=== PATIENT | female | born 1990 | race Hispanic/Latino ===

== ENCOUNTER → 2018-10-04 | Outpatient (CLI) | payer OTHER ==
[2018-10-04 18:33] LABS: BASO % 0.2 % (0.0-1.0); EOS # 0.2 10^3/uL (0.0-0.50); EOS % 2.5 % (0.0-3.0); HEMATOCRIT 39.2 % (36.0-47.0); HEMOGLOBIN 12.9 g/dl (12.0-15.5); LYMPH # 1.5 10^3/uL (1.5-6.5); LYMPH % 15.9 % (24.0-44.0); MEAN CORPUSCULAR HEMOGLOBIN 29.5 pg (27.0-33.0); MEAN CORPUSCULAR HGB CONC 32.9 g/dl (32.0-36.5); MEAN CORPUSCULAR VOLUME 89.5 fl (80.0-96.0); MONO # 0.4 10^3/uL (0.0-0.8); MONO % 4.2 % (0.0-5.0); NEUTROPHILS % 76.8 % (36.0-66.0); PLATELET COUNT, AUTOMATED 295 10^3/uL (150-450); RED BLOOD COUNT 4.38 10^6/uL (4.00-5.40); WHITE BLOOD COUNT 9.1 10^3/uL (4.0-10.0)
[2018-10-04 20:36] LABS: CHLAMYDIA DNA AMPLIFICATION NEGATIVE (NEGATIVE); GC DNA AMPLIFICATION NEGATIVE (NEGATIVE)
[2018-10-05 11:18] LABS: HIV 1&2 SCREEN CENTAUR NEGATIVE (NEGATIVE); RUBELLA IgG QUALITATIVE IMMUNE (IMMUNE)
[2018-10-06 11:16] LABS: HEPATITIS C VIRUS ABY INDEX 0.1 INDEX (<0.8)
== END ==
LOC: M SMT 13:48
PROVIDERS: ATTEND Advanced Practice Midwife
DX: Z34.81 Encounter for supervision of other normal pregnancy, first trimester (principal); Z3A.00 Weeks of gestation of pregnancy not specified

== ENCOUNTER → 2018-10-15 | Outpatient (CLI) | payer OTHER | LOC: M SMT 09:36 | PROVIDERS: ATTEND Obstetrics & Gynecology | DX: Z13.79 Encounter for other screening for genetic and chromosomal anomalies (principal) ==

== ENCOUNTER → 2018-11-08 | Outpatient (CLI) | payer OTHER | LOC: M SMT 10:05 | PROVIDERS: ATTEND Obstetrics & Gynecology | DX: Z36.89 Encounter for other specified antenatal screening (principal) ==

== ENCOUNTER → 2018-11-29 | Outpatient (CLI) | payer OTHER ==
--- NOTE | 2018-11-29 19:35 | REP ---
Clinical: Anatomical evaluation. Comparison: None to the surface. This is more . Findings: Examination demonstrates a single live intrauterine in cephalic presentation. motion is identified by technologist. Placenta is noted the anterior and grade grade 1 without evidence for placenta previa or abruption. Amniotic fluid volume is normal. Cervix measures 5.1 cm in length and appears closed. No evidence for nuchal cord. Gestational age by LMP 19 weeks 3 days with PORSHA 04/22/2019 . Gestational age by current measurements 18 weeks 4 day with PORSHA 04/28/2019 . FHR equals 163 beats per minute. BPD 3.9 cm 17 weeks 6 days HC 15.9 cm 18 weeks 5 days AC 12.8 cm 18 weeks 3 days FL 2.8 cm 18 weeks 5 days HL 2.8 cm 18 weeks 6 days HC/AC ratio 1.24 Estimated weight 244 grams ( 17th percentile). Anatomical assessment demonstrates normal structures including cranium, choroid plexus, cavum, cerebellum/posterior fossa, lungs, four-chamber heart, diaphragm, stomach, cord insertion/three-vessel cord, kidneys/bladder, and upper extremities. Limited evaluation of the facial features, cardiac ventricular outflow tracts, spine and lower extremities. Technologist demonstrates echogenic bowel of uncertain etiology. Impression: 1. Single live intrauterine in cephalic presentation demonstrating appropriate interval growth. 2. Anatomical limitations and abnormalities as noted above warrant reevaluation and follow-up. Electronically Signed by Kishore Myers MD 11/29/2018 07:26 P
== END ==
LOC: M SMT 10:35
PROVIDERS: ATTEND Obstetrics & Gynecology
DX: Z34.82 Encounter for supervision of other normal pregnancy, second trimester (principal); Z36.89 Encounter for other specified antenatal screening; Z3A.19 19 weeks gestation of pregnancy

== ENCOUNTER → 2018-12-13 | Outpatient (CLI) | payer OTHER ==
[2018-12-15 08:27] LABS: CYTOMEGALOVIRUS IgG ANTIBODY <0.60 U/mL (0.00-0.59); CYTOMEGALOVIRUS IgM ANTIBODY <30.0 AU/mL (0.0-29.9); TOXOPLASMA IgG ABY <3.0 IU/mL (0.0-7.1)
== END ==
LOC: M SMT 13:52
PROVIDERS: ATTEND Specialist
DX: O28.1 Abnormal biochemical finding on antenatal screening of mother (principal)

== ENCOUNTER → 2018-12-20 | Outpatient (CLI) | payer OTHER ==
--- NOTE | 2018-12-20 17:58 | REP ---
Obstetric sonography: History: Supervision of followup anatomy. Face, cardiac outflow tract views, spine, and lower extremities. Findings: Scanning through the gravid uterus demonstrates a viable single intrauterine gestation in a footling breech lie. motion is observed and heart rate is recorded at 160 beats per minute. An anterior grade zero placenta is seen without evidence of previa. Amniotic fluid is subjectively normal. Closed cervical length is 4.7 cm, measured transabdominally. No extrauterine abnormalities observed. There has been appropriate interval growth. Nose and lips are seen but facial profile is still less than optimally visualized. Four-chamber heart and a left ventricular outflow tract views are obtained but the right ventricular outflow tract view is still less than optimally seen due to lie. The following additional anatomic structures are identified and felt to be unremarkable today: cranium, choroid plexus, cavum, cerebellum posterior fossa, lungs, diaphragm, left-sided stomach, abdominal wall cord insertion, three-vessel umbilical cord, kidneys and bladder, spine, upper and lower extremities. Biometry chart: BPD 5.3 cm 22 weeks 0 days Head circumference 20.2 cm 22 weeks 2 days Abdominal circumference 17.6 cm 22 weeks 4 days Femur length 3.7 cm 21 weeks 4 days Humeral length 3.7 cm 22 weeks 6 days Cerebellar diameter 2.4 cm 21 week 6 days HC/AC ratio normal 1.15, cephalic index normal 0.72, estimated weight 478 grams, 1 pound 0 ounces, 37th percentile for 22 weeks 3 days. Impression: Viable single intrauterine gestation at 21 weeks 5 days by today's composite sonographic criteria. Expected gestational age estimate based on prior sonography is 22 weeks 3 days. PORSHA by prior sonography April 22, 2019. Facial profile and right ventricular cardiac outflow tract views are still less than optimally seen. Electronically Signed by El Shay MD 12/21/2018 11:28 A
== END ==
LOC: M LRY 13:54
PROVIDERS: ATTEND Specialist
DX: Z34.82 Encounter for supervision of other normal pregnancy, second trimester (principal); Z3A.21 21 weeks gestation of pregnancy

== ENCOUNTER → 2019-01-19 | Outpatient (CLI) | payer OTHER ==
[2019-01-19 14:22] LABS: BASO % 0.3 % (0.0-1.0); EOS # 0.1 10^3/uL (0.0-0.50); HEMOGLOBIN 12.7 g/dl (12.0-15.5); LYMPH # 1.2 10^3/uL (1.5-6.5); LYMPH % 19.3 % (24.0-44.0); MEAN CORPUSCULAR HEMOGLOBIN 29.7 pg (27.0-33.0); MEAN CORPUSCULAR HGB CONC 32.6 g/dl (32.0-36.5); MEAN CORPUSCULAR VOLUME 91.1 fl (80.0-96.0); MONO # 0.5 10^3/uL (0.0-0.8); MONO % 8.2 % (0.0-5.0); NEUTROPHILS # 4.3 10^3/uL (1.8-7.7); NEUTROPHILS % 69.5 % (36.0-66.0); PLATELET COUNT, AUTOMATED 235 10^3/uL (150-450); RED BLOOD COUNT 4.28 10^6/uL (4.00-5.40); WHITE BLOOD COUNT 6.1 10^3/uL (4.0-10.0)
== END ==
LOC: M SMT 09:49
PROVIDERS: ATTEND Advanced Practice Midwife
DX: Z34.82 Encounter for supervision of other normal pregnancy, second trimester (principal); Z3A.00 Weeks of gestation of pregnancy not specified

== ENCOUNTER → 2019-03-29 | Outpatient (CLI) | payer OTHER | LOC: M SMT 15:23 | PROVIDERS: ATTEND Advanced Practice Midwife | DX: Z34.83 Encounter for supervision of other normal pregnancy, third trimester (principal) ==

== ENCOUNTER → 2019-03-29 | Outpatient (REF) | payer OTHER | LOC: M LAB REF 16:59 | PROVIDERS: ATTEND Advanced Practice Midwife | DX: Z34.83 Encounter for supervision of other normal pregnancy, third trimester (principal) ==

== ENCOUNTER → 2019-04-04 | Outpatient (CLI) | payer OTHER ==
[~2019-04-04] MED LIST: VITA65TA PO
--- NOTE | 2019-04-04 22:34 | REP ---
Clinical: Anatomical evaluation. Comparison: 12/20/2018 . Findings: Examination demonstrates a single live intrauterine in cephalic presentation. motion is identified by technologist. Placenta is noted anterior and grade three without evidence for placenta previa or abruption. Amniotic fluid volume is normal. Cervix measures 3.6 cm in length and appears closed. No evidence for nuchal cord. Gestational age by LMP 37 weeks 3 days with PORSHA 04/22/2019 . Gestational age by current measurements 38 weeks 4 days with PORSHA 04/14/2019 . FHR equals 144 beats per minute. BPD 9.5 cm 38 weeks 6 days HC 34.3 cm 39 weeks 4 days AC 35.2 cm 39 weeks 1 day FL 7.5 cm 38 weeks 2 days HL 6.0 cm 35 weeks 0 days HC/AC ratio 0.97 Estimated weight 3640 grams ( 82nd percentile based on age by LMP ). Amniotic fluid index: 10.9 cm (7.4 - 24.2) Umbilical cord SD ratio: 2.11 (1.60 - 2.60) Impression: Single live advanced gestation in cephalic presentation demonstrating appropriate interval growth. No gross abnormalities are identified. Electronically Signed by Kishore Myers MD 04/04/2019 10:25 P
== END ==
LOC: M LRY 13:45
PROVIDERS: ATTEND Advanced Practice Midwife
DX: O26.843 Uterine size-date discrepancy, third trimester (principal); Z3A.38 38 weeks gestation of pregnancy

== ENCOUNTER 2019-04-14 13:27 | Inpatient (IN) | payer OTHER ==
[~2019-04-14] VITALS: Ht 157.5 cm; Wt 88.9 kg
[2019-04-14] VITALS (18 sets, daily range): BP systolic 90–139; BP diastolic 49–89
--- NOTE | 2019-04-14 14:43 | HPEPDOC ---
Obstetrical History & Physical General Date of Admission Apr 14, 2019 at 13:58 History of Present Illness 28 yo at 39 0/7 wks presents with ROM She reports LOF starting around noon. Since then has had occasional ctx. Fluid became light green tinged. No VB, +FM. No fevers, chills, CP, SOB, dizziness HCP: PORSHA 04/22/19 -polyhydramnios, echogenic bowel, testing negative, after counseling with PNC declined amnio -Initial HBV test +, per pre rosey chart confirmatory negative PNL: A+, antibody neg, RI, RPR nr, Hep B neg, HIV neg, HCV neg, GC/CT neg, GBS+ PMH: denies PSH: wisdom teeth Meds: PNV, omeprazole, allergy shots NKDA SH: denies e/t/d Dating Final EDC: Apr 22, 2019 Past Medical History Past Obstetrical History : Past Obstetrical History: Multigravida Type of Delivery: Spontaneous Vaginal Del. Past Medical History Medical History none Surgical History: Denies/None Family History Significant Family History: No pertinent family hx Social History Marital Status: Family situation: Spouse/partner home Psychosocial History: No pertinent psych hx * Smoker: non-smoker Drugs: denies Physical Examination Physical Examination GENERAL: Alert and oriented times three. ABDOMEN: Gravid and non-tender to touch. FETUS: Is vertex (VTX) by sterile vaginal examination (SVE), fetus is vertex (VTX) by Palmer. EXTREMITIES: No edema. No clonus. Laboratory Data [facility] Laboratory Tests 2 04/14/19 14:03: Serology Scanned Report Hepatitis B Testing Pertinent Laboratoy Data Blood Type: A+ RBC Antibody Screen: Negative HIV: Negative Hepatitis B: Negative Hepatitis C: Negative Rapid Plasma Reagin: Nonreactive Rubella: Immune Chlamydia/Gonorrhea: Negative Group B Streptococcus: Positive Other Ultrasounds 09/13/2018: viabilityTransabdominal ultrasound done with CRL consistent with 8 weeks 4 days gestation with an OPRSHA of 04/22/19. Positive cardiac activity with FHR of 175. 11/29/2018: anatomySIUP. Placenta anterior, no previa or abruption. Cervix 5. 1cm. EFW 244g, 17%. Limited evaluation of facial features, VOTs, spine and lower extremeties. Echogenic bowel of uncertain etiology. 12/20/2018: SIUP. Footling breech lie. FHR: 160 bpm. Placenta anterior grade0 without previa or abruption. Cx: closed 4.7cm. EFW: 478grams, (37%). Less than optimal views of right ventricular cardiac outflow tract. 12/21/2018: Sono by Dr Moralez shows subjectively adequate fluid 01/11/2019: PNCNo anomalies noted, GARCIA 19.48. Bowel not echogenic, Brain and Spine normal. 03/29/2019: Vtx 04/04/2019: Growth SIUP. FHR 144 BPM. EFW 3640g. 82nd%. AFV wnl. SD ratio 2.11. Vaginal Examination Dilation: 1cm Effacement: 30% Station: -2 Cervical Consistency: Firm Cervical Position: Middle Presentation: Cephalic presentation Assessment Heart Rate (FHR): 135 Variability: Moderate Accelerations: Positive Decelerations: None Tocometer Contractions: Yes Frequency: irregular Assessment/Plan Assessment 28 yo at 39 0/7 wks with SROM Plan admit to LDR, normal labs, IV IOL: cervix unfavorable, will start with PO miso GBS+: start PCN FWB: reassuring MOD: cep for ALY SIERRA PGY-3 Apr 14, 2019 14:43
[2019-04-14] MEDS ORDERED: VITA65TA PO (14:46)
[2019-04-14 14:49] LABS: BASO % 0.2 % (0.0-1.0); EOS # 0.1 10^3/uL (0.0-0.50); EOS % 1.3 % (0.0-3.0); HEMATOCRIT 42.5 % (36.0-47.0); HEMOGLOBIN 14.2 g/dl (12.0-15.5); LYMPH # 1.3 10^3/uL (1.5-6.5); LYMPH % 15.3 % (24.0-44.0); MEAN CORPUSCULAR HEMOGLOBIN 30.2 pg (27.0-33.0); MEAN CORPUSCULAR HGB CONC 33.4 g/dl (32.0-36.5); MEAN CORPUSCULAR VOLUME 90.4 fl (80.0-96.0); MONO # 0.4 10^3/uL (0.0-0.8); MONO % 4.8 % (0.0-5.0); NEUTROPHILS # 6.6 10^3/uL (1.8-7.7); NEUTROPHILS % 77.9 % (36.0-66.0); PLATELET COUNT, AUTOMATED 216 10^3/uL (150-450); WHITE BLOOD COUNT 8.5 10^3/uL (4.0-10.0)
[2019-04-14] MEDS ORDERED: miSOPROStol 50 MCG 1/2 TAB (S0191) PO PRN (15:00)
[2019-04-14] MEDS ORDERED: PENICILLIN G POTASSIUM IV 5 MU in D5W MINI-BAG PLUS 100 ML IV STA (15:03)
[2019-04-14] MEDS: LR 1,000 ML IV SCH ×2 (15:19→23:08)
[2019-04-14] MEDS: PENICILLIN G POTASSIUM IV 2.5 MU in APPROPRIATE DILUENT 1 EA IV SCH ×2 (19:44→23:08)
[2019-04-14] MEDS ORDERED: OXYTOCIN DRIP 30 UNITS in APPROPRIATE DILUENT 1 EA IV SCH (20:15)
[2019-04-14] MEDS ORDERED: FENTANYL 2MCG/ML ROPIVACAINE 0.2% IN 0.9% NACL 100ML IVBAG As Ordered ONE (21:28)
[2019-04-14] MEDS ORDERED: NALOXONE INJ 0.4 MG/1 ML VIAL (J2310) IV PRN (23:00)
[2019-04-14] MEDS ORDERED: diphenhydrAMINE INJ 50MG/ML VIAL (J1200) IV PRN (23:00)
[2019-04-14] MEDS ORDERED: ePHEDrine SULFATE 25 MG/5 ML(5MG/ML) SYRINGE IV PRN (23:00)
[2019-04-14] MEDS ORDERED: EPIDURAL COMMENT XX SCH (23:00)
[2019-04-14] MEDS ORDERED: REFRIGERATOR IV KEYS XX PRN (23:00)
[2019-04-14] MEDS ORDERED: EPIDURAL/PCA KEYS XX PRN (23:00)
[2019-04-14] MEDS ORDERED: FENTANYL/ROPIVACAINE/NACL BAG 100 ML EPIDURAL SCH (23:00)
[2019-04-14] MEDS ORDERED: ONDANSETRON 4MG/2ML VIAL (J2405) IV PRN (23:00)
[2019-04-14] MEDS ORDERED: LACTATED RINGER'S 1000 ML IV PRN (23:00)
[2019-04-15] VITALS (7 sets, daily range): BP systolic 109–131; BP diastolic 56–63
[2019-04-15] MEDS ORDERED: OXYTOCIN DRIP 30 UNITS in APPROPRIATE DILUENT 1 EA IV SCH (01:41)
[2019-04-15] MEDS ORDERED: MOM 30ML SUSPENSION UDC PO PRN (01:45)
[2019-04-15] MEDS ORDERED: ACETAMINOPHEN TAB 650MG DOSE (2X325MG) PO PRN (01:45)
[2019-04-15] MEDS ORDERED: DIBUCAINE 1% OINTMENT 30GM TOP PRN (01:45)
[2019-04-15] MEDS ORDERED: RHOGAM 300 MCG (1500 IU) INJ (J2790) IM SCH (01:45)
[2019-04-15] MEDS ORDERED: ANUSOL HC CREAM 30GM TOP PRN (01:45)
[2019-04-15] MEDS ORDERED: DOCUSATE SODIUM 100 MG CAP PO PRN (01:45)
[2019-04-15] MEDS ORDERED: METHYLERGONOVINE MALEATE 0.2 MG TAB PO PRN (01:45)
[2019-04-15] MEDS ORDERED: IBUPROFEN 800 MG TAB PO PRN (01:45)
[2019-04-15] MEDS ORDERED: MEASLES,MUMPS,RUBELLA VACCINE INJ (MMR-II) (90707) SC SCH (01:45)
[2019-04-15] MEDS ORDERED: IBUPROFEN 600 MG TAB PO PRN (01:45)
--- NOTE | 2019-04-15 07:31 | DN ---
DATE OF PROCEDURE: 04/15/2019. TIME OF : 48 GENDER: Male : 8 and 9 WEIGHT: 7 pounds 11 ounces, 3500 grams. ANESTHESIA: Epidural. ESTIMATED BLOOD LOSS: 300 mL. LACERATIONS: None. COUNTS: 5 laparotomy sponges accounted for prior to delivery. DELIVERY NOTE: On April 15, 2019 at 0050 Mrs. Skinner, a 28-year-old 2 now para 2 had spontaneous vaginal delivery of a live born male , Apgars 08/09, weight was 7 pounds 11 ounces 3500 grams head was delivered OA over intact perineum followed by delivery of shoulders and corpus. Infant was handed to mom with good cry. Cord was clamped times two was cut by the father of baby under my direction. Placenta was then drained delivered grossly intact premixed bag of 500 ounces of normal saline with 30 units of Pitocin was then bolused along with uterine massage. The uterus was firm. On inspection the cervix and perineum was grossly intact hemostatic. Mom and baby recovered stable condition. TRINIDAD
[2019-04-15] MEDS: PRENATAL VITAMINS CHEWABLE TABLET PO SCH (08:17)
[2019-04-15] MEDS: ACETAMINOPHEN 500 MG TAB PO PRN (17:59)
[2019-04-16 06:30] VITALS: BP 106/55
[2019-04-16] MEDS: ACETAMINOPHEN 500 MG TAB PO PRN (08:34)
[2019-04-16] MEDS: PRENATAL VITAMINS CHEWABLE TABLET PO SCH (16:22)
== END 2019-04-16 19:40 | disposition home or self-care (01) | DRG 807 ==
LOC: M LDO 13:27 → M LDI 13:58 → M OBS 04-15 02:00
PROVIDERS: ADMIT Obstetrics & Gynecology; ATTEND Obstetrics & Gynecology
PROC: 10E0XZZ Delivery of Products of Conception, External Approach (ICD-10-PCS; principal; 2019-04-15)
DX: O99.824 Streptococcus B carrier state complicating childbirth (principal); Z37.0 Single live birth; Z3A.39 39 weeks gestation of pregnancy

== ENCOUNTER → 2019-09-09 | Outpatient (CLI) | payer OTHER ==
[2019-09-09 16:21] LABS: BASO % 0.3 % (0.0-1.0); EOS # 0.2 10^3/uL (0.0-0.5); EOS % 4.1 % (0.0-3.0); HEMATOCRIT 44.3 % (36.0-47.0); LYMPH # 1.7 10^3/uL (1.5-5.0); MEAN CORPUSCULAR HGB CONC 31.6 g/dl (32.0-36.5); MEAN CORPUSCULAR VOLUME 95.1 fl (80.0-96.0); MONO # 0.4 10^3/uL (0.0-0.8); MONO % 6.4 % (0.0-5.0); NEUTROPHILS # 3.5 10^3/uL (1.5-8.5); NEUTROPHILS % 59.9 % (36.0-66.0); PLATELET COUNT, AUTOMATED 242 10^3/uL (150-450); RED BLOOD COUNT 4.66 10^6/uL (4.00-5.40); WHITE BLOOD COUNT 5.8 10^3/uL (4.0-10.0)
[2019-09-09 16:32] LABS: ALBUMIN 4.2 GM/DL (3.2-5.2); ALT/SGPT 29 U/L (12-78); BILIRUBIN,TOTAL 0.4 MG/DL (0.2-1.0); BLOOD UREA NITROGEN 17 MG/DL (7-18); CALCIUM LEVEL 9.5 MG/DL (8.5-10.1); CARBON DIOXIDE LEVEL 30 MEQ/L (21-32); CHLORIDE LEVEL 106 MEQ/L (98-107); CREATININE FOR GFR 0.62 MG/DL (0.55-1.30); FREE T4 0.93 NG/DL (0.76-1.46); GLOMERULAR FILTRATION RATE > 60.0 (>60); GLUCOSE, FASTING 86 MG/DL (70-100); POTASSIUM SERUM 4.9 MEQ/L (3.5-5.1); SODIUM LEVEL 140 MEQ/L (136-145); THYROID STIMULATING HORMONE 0.331 uIU/ML (0.358-3.740); TOTAL PROTEIN 7.3 GM/DL (6.4-8.2)
== END ==
LOC: M LRY 10:51
PROVIDERS: ATTEND Family Medicine
DX: Z13.29 Encounter for screening for other suspected endocrine disorder (principal); Z13.0 Encounter for screening for diseases of the blood and blood-forming organs and certain disorders involving the immune mechanism

== ENCOUNTER → 2020-04-19 | Outpatient (CLI) | payer OTHER | LOC: MERGE 08:52 → M LRY 08:52 | PROVIDERS: ATTEND Advanced Practice Midwife | DX: Z34.90 Encounter for supervision of normal pregnancy, unspecified, unspecified trimester (principal); Z3A.00 Weeks of gestation of pregnancy not specified ==

== ENCOUNTER → 2020-05-24 | Outpatient (CLI) | payer OTHER ==
--- NOTE | 2020-06-12 17:56 | REP ---
OBSTETRIC SONOGRAPHY HISTORY: Supervision of for anatomy. FINDINGS: Scanning through the gravid uterus demonstrates a viable single intrauterine gestation in a cephalic lie. Closed cervical length measured transabdominally is 5.0 cm. The placenta is posterior grade 0 without evidence of placenta previa or abruption. Amniotic fluid is subjectively normal. heart rate is recorded at 150 beats per minute. No abnormality is observed. Left ventricular outflow tract view was less than optimally seen due to position. The following anatomic structures are identified and felt to be unremarkable: thalami, spine, left-sided stomach, kidneys and bladder, four chamber heart, and right ventricular cardiac outflow tract view, abdominal cord insertion, three-vessel cord, facial profile only, nose and lips not seen, upper and lower extremities. BIOMETRY CHART: BPD 43 mm 18 weeks 6 days Head Circumference 158 mm 18 weeks 5 days Abdominal Circumference 135 mm 19 weeks 0 days Femur Length 29 mm 18 weeks 5 days Humeral Length 28 mm 18 weeks 6 days Estimated Weight 262 g IMPRESSION: Viable single intrauterine gestation at 18 weeks 6 days by todays composite criteria. Estimated date of delivery (PORSHA) 10/19/2020. Left ventricular cardiac outflow tract, nose, and lips less than optimally seen. MTDD
== END ==
LOC: M RAD 14:57 → MERGE 14:57
PROVIDERS: ATTEND Advanced Practice Midwife
DX: Z34.82 Encounter for supervision of other normal pregnancy, second trimester (principal); Z36.89 Encounter for other specified antenatal screening; Z3A.18 18 weeks gestation of pregnancy

== ENCOUNTER → 2020-06-26 | Outpatient (CLI) | payer OTHER ==
--- NOTE | 2020-07-04 14:58 | REP ---
OBSTETRIC SONOGRAPHY HISTORY: Follow-up anatomy, nose, lips, and left ventricular outflow tract. FINDINGS: Scanning through the gravid uterus demonstrates a single live intrauterine gestation in a transverse, head to the maternal left position. motion was observed and heart rate is recorded at 156 beats per minute. A left lateral and posterior placenta is seen grade 1 without evidence of placenta previa or abruption. Amniotic fluid is subjectively normal. Closed cervical length is 3.9 cm measured transabdominally. The following anatomic structures are identified today and felt to be unremarkable: cranium, face and profile, nose and lips, four chamber heart with left and right ventricular outflow tract views, left-sided stomach, kidneys and bladder. BIOMETRY CHART: BPD 5.8 cm 23 weeks 5 days Head circumference 21.2 cm 23 weeks 2 days Abdominal circumference 19.1 cm 23 weeks 6 days Femur length 4.2 cm 23 weeks 4 days Humeral length 4.2 cm 25 weeks 2 days AC/HC ratio 1.11 Normal Cephalic index 0.77 Normal Estimated weight 618 grams, 1 pound 5 ounces, 24th percentile for 24 weeks 1 day. IMPRESSION: Single live intrauterine gestation at 24 weeks 0 days by todays composite criteria. No abnormality seen. Estimated date of delivery (PORSHA) by todays sonography 10/26/2020. MTDD
== END ==
LOC: MERGE 09:34 → M WHC 09:34
PROVIDERS: ATTEND Advanced Practice Midwife
DX: Z36.2 Encounter for other antenatal screening follow-up (principal); Z3A.24 24 weeks gestation of pregnancy

== ENCOUNTER → 2020-08-07 | Outpatient (REF) | payer OTHER ==
[2020-08-07 18:10] LABS: HEMATOCRIT 36.9 % (36.0-47.0); HEMOGLOBIN 11.8 g/dl (12.0-15.5); MEAN CORPUSCULAR HEMOGLOBIN 28.8 pg (27.0-33.0); PLATELET COUNT, AUTOMATED 224 10^3/uL (150-450); WHITE BLOOD COUNT 8.4 10^3/uL (4.0-10.0)
== END ==
LOC: M PLALAB 13:35
PROVIDERS: ATTEND Specialist
DX: Z34.82 Encounter for supervision of other normal pregnancy, second trimester (principal)

== ENCOUNTER → 2020-09-18 | Outpatient (REF) | payer OTHER | LOC: M SFHCPLAZ 16:55 | PROVIDERS: ATTEND Obstetrics & Gynecology | DX: Z34.93 Encounter for supervision of normal pregnancy, unspecified, third trimester (principal); Z3A.36 36 weeks gestation of pregnancy | CPT/HCPCS: 87081; G0463 ==

== ENCOUNTER 2020-10-10 10:46 | Inpatient (IN) | payer OTHER ==
[2020-10-10] VITALS (26 sets, daily range): BP systolic 84–157; BP diastolic 45–79
[~2020-10-10] VITALS: Ht 157.5 cm; Wt 99.1 kg
--- OUTSIDE RECORDS SUMMARY | 2020-10-10 11:13 | CCD ---
Author Author [facility] Organization [facility] Address Unknown Phone Unavailable Care Team Providers Care Test Design Engineer Name Role Phone Parisa Saunders Unavailable PROBLEMS Type Condition ICD9-CM Code [id number] Code Onset Dates Condition S tatus SNOMED Code Notes Problem Obesity affecting in third trimester O99 .213 Active 742783625196 Problem Obesity E66.9 Active 209305188 Problem Obesity complicating in first trimester O99.21 1 Active Problem Supervision of other normal Z34.80 Ac tive 084169628 ALLERGIES No Known Allergies ENCOUNTERS from 1989 to 2020-09-01 Encounter Location Date Provider Diagnosis [facility] [address] [place] [address] Aug, Parisa Saunders 33 weeks gestation o f Z3A.33 ; Obesity affecting in third trimester O99.213 and Obesity E66.9 IMMUNIZATIONS Vaccine Route Administration Date Status TDAP 0.5mL (Boostrix) IM Intramuscular Aug 29, 2020 Administe red SOCIAL HISTORY Tobacco Use: Social History Observation Description Date Details (start date - stop date) Never Smoker Sex Assigned At : Social History Observation Description Sex Assigned At Unknown Alcohol Screening: Question Answer Notes Did you have a drink containing alcohol in the past year? No Points 0 Interpretation Negative Tobacco Use: Question Answer Notes Are you a: never smoker REASON FOR REFERRAL No Information VITAL SIGNS Weight 212 lbs Aug, Height 62 in Aug, BMI 38.775 kg/m2 Aug, Blood pressure systolic 118 mm Hg Aug, Blood pressure diastolic 70 mm Hg Aug, MEDICATIONS Medication SIG (Take, Route, Frequency, Duration) Notes Start Da te End Date Status Zyrtec Allergy 10 MG 1 tablet Orally Once a day Active Sertraline HCl 50 MG 1 tablet Orally Once a day for 30 day(s) Jun, Not-Taking Omeprazole 20 MG 1 capsule 30 minutes before morning meal Orally Once a day for 90 days Active 27-1 MG 1 tablet Orally Once a day for 90 days Active PROCEDURES from 1989 to 2020-09-01 Procedure Date Ordered Result Body Site Immunization: Boostrix 0.5mL IM (TDAP) 2020-08-29 N/A RESULTS No Results REASON FOR VISIT 2 WK PN MEDICAL (GENERAL) HISTORY Type Description Date Medical History none Surgical History wisdom teeth extract Hospitalization History childbirth Goals Section No Information Health Concerns No Information MEDICAL EQUIPMENT No Information MENTAL STATUS No Information FUNCTIONAL STATUS No Information ASSESSMENTS Encounter Date Diagnosis Assessment Notes Treatment Notes Treatm ent Clinical Notes Aug, 33 weeks gestation of (ICD-10 - Z3A.33 ) Aug, Obesity affecting in third [facility] (ICD-10 - O99.213) Aug, Obesity (ICD-10 - E66.9) PLAN OF TREATMENT Medication Medication Name Sig Start Date Stop Date 27-1 MG 1 tablet Orally Once a day for 90 days Omeprazole 20 MG 1 capsule 30 minutes before morning meal Orally Once a day for 90 days Next Appt Details 3 Weeks Reason:PN Provider Name:Mickey Walton, 10:20:00 AM, [address] [place], [address], Follow Up:3 WeeksPN Insurance Providers Payer Name Payer Address Payer Phone Insured Name Patient Relati onship to Insured Coverage Start Date Coverage End Date [address] [phone] MALVIN GARCIA self
--- OUTSIDE RECORDS SUMMARY | 2020-10-10 11:13 | CCD | Continuity of Care Document ---
Author Shahrzad Burk M.D. Organization Unknown Address [address], [place] [address] Phone [phone] Care Team Providers Care Sanitation Supervisor Name Role Phone Shelley Ambrosio Problems Active Problems Provider Date Allergic rhinitis due to pollen Onset: 0 03/05/2018 Note: (4++ reaction to grass pollen on s cratch test. 3+ reaction to weed pollen and tree mix #1 (birch, oak, maple) on intradermal test.) Allergic rhinitis due to animal dander O nset: 03/05/2018 Note: (3+ reaction to cat dander on scra tch test. 4+ reaction to dog dander on intradermal test.) Allergic rhinitis Onset: 03/05/2018 Note: due to dust mites: (4++ reaction t o dust mites on scratch test.) Anaphylaxis Jesse Zamarripa M.D. Onset: 020 Social History Type Date Description Comments Sex Unknown Tobacco Use Start: Unknown Patient has never smoked Allergies, Adverse Reactions, Alerts Description No Known Drug Allergies Medications Active Medications SIG Qnty Indications Ordering Provide r Date Claritin 10mg Tablets Take 1 tablet by mouth daily for itching and sneezing 30tabs J30.81 Jesse sweeney M.D. 06/20/2019 Olopatadine HCL 0.1% Solution instill 1 drop into affected eye(s) by ophthalmic route 2 times per day at an interval of 6 to 8 hours Unknown 05/11/2018 Cetirizine HCL 10mg Tablets take 1 tablet (10 mg) by oral route once daily for 30 days 30tabs J30.89 Jesse Zamarripa M.D. Fluticasone Propionate 50mcg/Act Suspension spray 2 sprays (100 mcg) in each nostril by intranasal route once daily for 30 days Unknown Sertraline HCL 50mg Tablets take 1 tablet (50 mg) by oral route qod. Unknown Jencycla 0.35mg Tablets Unknown Medications Administered in Office Medication SIG Qnty Indications Ordering Provider Date Allergy Injection 2 Or More Injection Jesse Zamarripa M.D. 09/18/2020 Allergy Injection 2 Or More Injection Jesse Zamarripa M.D. 08/31/2020 Allergy Injection 2 Or More Injection Jesse Zamarripa M.D. 08/07/2020 Allergy Injection 2 Or More Injection Jesse Zamarripa M.D. 07/16/2020 Allergy Injection 2 Or More Injection CARSON Esquivel 06/26/2020 Allergy Injection 2 Or More Injection Jesse Zamarripa M.D. 06/26/2020 Allergy Injection 2 Or More Injection Jesse Zamarripa M.D. 06/01/2020 Allergy Injection 2 Or More Injection Jesse Zamarripa M.D. 05/11/2020 Allergy Injection 2 Or More Injection Jesse Zamarripa M.D. 04/20/2020 Allergy Injection 2 Or More Injection Jesse Zamarripa M.D. 03/26/2020 Therapeutic, Prophylactic Or Diagnostic Injection Subq/Im Injection Jesse jonas M.D. 03/01/2020 Allergy Injection 2 Or More Injection Jesse Zamarripa M.D. 03/01/2020 Allergy Injection 2 Or More Injection Jeses Zamarripa M.D. 03/01/2020 Allergy Injection 2 Or More Injection Jesse Zamarripa M.D. 02/08/2020 Allergy Injection 2 Or More Injection Jesse Zamarripa M.D. 01/25/2020 Allergy Injection 2 Or More Injection Jesse Zamarripa M.D. 12/22/2019 Allergy Injection 2 Or More Injection Jesse Zamarripa M.D. 12/01/2019 Allergy Injection 2 Or More Injection Jesse Zamarripa M.D. 11/07/2019 Allergy Injection 2 Or More Injection Jesse Zamarripa M.D. 10/12/2019 Allergy Injection 2 Or More Injection Jesse Zamarripa M.D. 09/26/2019 Allergy Injection 2 Or More Injection Jesse Zamarripa M.D. 09/09/2019 Allergy Injection 2 Or More Injection Jesse Zamarripa M.D. 09/02/2019 Allergy Injection 2 Or More Injection Jesse Zamarripa M.D. 08/22/2019 Allergy Injection 2 Or More Injection Jesse Zamarripa M.D. 08/12/2019 Allergy Injection 2 Or More Injection Jesse Zamarripa M.D. 08/02/2019 Allergy Injection 2 Or More Injection Jesse Zamarripa M.D. 07/28/2019 Allergy Injection 2 Or More Injection Jesse Zamarripa M.D. 07/21/2019 Allergy Injection 2 Or More Injection Jesse Zamarripa M.D. 07/13/2019 Allergy Injection 2 Or More Injection Jesse Zamarripa M.D. 07/07/2019 Allergy Injection 2 Or More Injection KIMBERLY [place] 06/27/2019 Allergy Injection 2 Or More Injection Jesse Zamarripa M.D. 06/27/2019 Allergy Injection 2 Or More Injection Jesse Zamarripa M.D. 06/17/2019 Allergy Injection 2 Or More Injection Jesse Zamarripa M.D. 06/08/2019 Allergy Injection 2 Or More Injection Jesse Zamarripa M.D. 06/03/2019 Immunizations Description No Information Available Vital Signs Date Vital Result Comment 06/20/2019 10:56am Weight 194.50 lb Height 62 inches 5'2" Heart Rate 87 /min Respiratory Rate 16 /min BP Systolic 129 mmHg BP Diastolic 93 mmHg BMI (Body Mass Index) 35.6 kg/m2 06/03/2018 1:24pm BMI (Body Mass Index) 31.54 kg/m2 Results Description No Information Available Procedures Date Code Description Status 09/18/2020 95877 Allergy Injection 2 Or More Comp leted 08/31/2020 04349 Allergy Injection 2 Or More Comp leted 08/07/2020 05151 Allergy Injection 2 Or More Comp leted 07/19/2020 13205 Allergy Antigens Single Or Multi ple Completed 07/16/2020 25706 Allergy Injection 2 Or More Comp leted 06/26/2020 97108 Allergy Injection 2 Or More Comp leted 06/26/2020 77103 Allergy Injection 2 Or More Comp leted 06/01/2020 27413 Allergy Injection 2 Or More Comp leted 05/11/2020 19933 Allergy Injection 2 Or More Comp leted 04/20/2020 14462 Allergy Injection 2 Or More Comp leted 03/26/2020 55904 Allergy Injection 2 Or More Comp leted Medical Devices Description No Information Available Encounters Description No Information Available Assessments Date Code Description Provider 09/18/2020 J30.1 Allergic rhinitis due to pollen Jesse Zamarripa M.D. 09/18/2020 J30.81 Allergic rhinitis due to animal (cat) (dog) hair and dander Jesse Zamarripa M.D. 09/18/2020 J30.89 Other allergic rhinitis Jesse Zamarripa M.D. Plan of Treatment 03/01/2020 - Jesse Zamarripa M.D.* T88.6xxA Anaphylactic reaction due to adverse effect of correct drug or medicament properly administered, initial encounter * J30.1 Allergic rhinitis due to pollen * J30.81 Allergic rhinitis due to animal (cat) (dog) hair and dander * J30.89 Other allergic rhinitis * All * Follow up:* ER if symptoms return. Should take 40 mg of prednisone tonight. Benadryl 1-2 tablets (25-50 mg) prn itching. IT dose will be decreased to 0.35 RED as a maintenance dose. Functional Status Description No Information Available Mental Status Description No Information Available Referrals Description No Information Available
--- OUTSIDE RECORDS SUMMARY | 2020-10-10 11:13 | CCD ---
Author Author [facility] Organization [facility] Address Unknown Phone Unavailable Care Team Providers Care Ground Nuclear Weapons Assembly Officer Name Role Phone Mickey Walton Unavailable PROBLEMS Type Condition ICD9-CM Code [id number] Code Onset Dates Condition S tatus SNOMED Code Notes Problem Obesity affecting in third trimester O99 .213 Active 409161641097 Problem Obesity E66.9 Active 310084094 Problem Obesity complicating in first trimester O99.21 1 Active Problem Supervision of other normal Z34.80 Ac tive 309232050 ALLERGIES No Known Allergies ENCOUNTERS from 1989 to 2020-09-26 Encounter Location Date Provider Diagnosis [facility] [place] [address] Aug, Mickey Walton Multigravida in thir d trimester Z34.83 and 36 weeks gestation of Z3A.36 IMMUNIZATIONS Vaccine Route Administration Date Status TDAP [...] FOR REFERRAL No Information VITAL SIGNS Weight 218 lbs Aug, Height 62 in Aug, BMI 39.873 kg/m2 Aug, Blood pressure systolic 118 mm Hg Aug, Blood pressure diastolic 62 mm Hg Aug, MEDICATIONS Medication SIG (Take, Route, Frequency, Duration) Notes Start Da te End Date Status 27-1 MG 1 tablet Orally Once a day for 90 days Active Omeprazole 20 MG 1 capsule 30 minutes before morning meal Orally Once a day for 90 days Active Zyrtec Allergy 10 MG 1 tablet Orally Once a day Active Sertraline HCl 50 MG 1 tablet Orally Once a day for 30 day(s) Jun, Not-Taking PROCEDURES No Information RESULTS Component Value Reference Range GROUP B STREP CULTURE Reviewed date:09/25/2020 18:35:25 Interpretation: Performing Lab:[facility]ly [facility], [facility] [address] [facility] [address] , ,[place] [address] REASON FOR VISIT 3 WK PN MEDICAL (GENERAL) HISTORY Type Description Date Medical History none Surgical History wisdom teeth extract Hospitalization History childbirth Goals Section No Information Health Concerns No Information MEDICAL EQUIPMENT No Information MENTAL STATUS No Information FUNCTIONAL STATUS No Information ASSESSMENTS Encounter Date Diagnosis Assessment Notes Treatment Notes Treatm ent Clinical Notes Aug, Multigravida in third trimester (ICD-10 - Z34.83 ) Aug, 36 weeks gestation of (ICD-10 - Z3A.36 ) PLAN OF TREATMENT Next Appt Details 1 Week Reason: Provider Name:Parisa Saunders, 2020-09 02:15:00 PM, [address] [place], [address], Insurance Providers Payer Name Payer Address Payer Phone Insured Name Patient Relati onship to Insured Coverage Start Date Coverage End Date [place] [phone] MALVIN GARCIA self
--- OUTSIDE RECORDS SUMMARY | 2020-10-10 11:13 | CCD ---
Author Author [facility] Organization [facility] Address Unknown Phone Unavailable Care Team Providers Care Retirement Sales Consultant Name Role Phone Parisa Saunders Unavailable PROBLEMS Type Condition ICD9-CM Code [id number] Code Onset Dates Condition S tatus SNOMED Code Notes Problem Obesity affecting in third trimester O99 .213 Active 010974239896 Problem Obesity E66.9 Active [id number] Problem Obesity complicating in first trimester O99.21 1 Active Problem Supervision of other normal Z34.80 Ac tive [id number] ALLERGIES No Known Allergies ENCOUNTERS from 1989 to 2020-10-02 Encounter Location Date Provider Diagnosis [facility] [address] [place] [id number] Sep, Parisa Saunders 38 weeks gestation o f Z3A.38 ; Obesity affecting in third trimester O99.213 [...] FOR REFERRAL No Information VITAL SIGNS Weight 217.2 lbs Sep, Weight-kg 98.52 kg Sep, Height 62 in Sep, BMI 39.726 kg/m2 Sep, Blood pressure systolic 124 mm Hg Sep, Blood pressure diastolic 70 mm Hg Sep, MEDICATIONS Medication SIG (Take, Route, Frequency, Duration) Notes Start Da te End Date Status 27-1 MG 1 tablet Orally Once a day for 90 days Active Zyrtec Allergy 10 MG 1 tablet Orally Once a day Active Tylenol 325 MG 1 tablet as needed Orally every 4 hrs Active Omeprazole 20 MG 1 capsule 30 minutes before morning meal Orally Once a day for 90 days Active Sertraline HCl 50 MG 1 tablet Orally Once a day for 30 day(s) Jun, Not-Taking PROCEDURES No Information RESULTS No Results REASON FOR VISIT 1WK PN MEDICAL (GENERAL) HISTORY Type Description Date Surgical History wisdom teeth extract Hospitalization History childbirth Goals Section No Information Health Concerns No Information MEDICAL EQUIPMENT No Information MENTAL STATUS No Information FUNCTIONAL STATUS No Information ASSESSMENTS Encounter Date Diagnosis Assessment Notes Treatment Notes Treatm ent Clinical Notes Sep, 38 weeks gestation of (ICD-10 - Z3A.38 ) Sep, Obesity affecting in third [facility] (ICD-10 - O99.213) Sep, Obesity (ICD-10 - E66.9) PLAN OF TREATMENT Next Appt Details 1 Week Reason:PN Provider Name:Melinda Ye Joseph, 2020-10-12 03:40:00 PM, [address] [place], [address], Follow Up:1 WeekPN Insurance Providers Payer Name Payer Address Payer Phone Insured Name Patient Relati onship to Insured Coverage Start Date Coverage End Date [place] [phone] MALVIN GARCIA self
--- OUTSIDE RECORDS SUMMARY | 2020-10-10 11:14 | CCD | Continuity of Care Document ---
Author Shahrzad Burk M.D. Organization Unknown Address [address], [place] [address] Phone [phone] Care Team Providers Care Research Food Technologist Name Role Phone Shelley Ambrosio Problems Active [...] Information Available Procedures Date Code Description Status 08/07/2020 50552 Allergy Injection 2 Or More Comp leted 07/19/2020 00113 Allergy Antigens Single Or Multi ple Completed 07/16/2020 85300 Allergy Injection 2 Or More Comp leted 06/26/2020 17938 Allergy Injection 2 Or More Comp leted 06/26/2020 21267 Allergy Injection 2 Or More Comp leted 06/01/2020 24184 Allergy Injection 2 Or More Comp leted 05/11/2020 60715 Allergy Injection 2 Or More Comp leted 04/20/2020 90731 Allergy Injection 2 Or More Comp leted 03/26/2020 48617 Allergy Injection 2 Or More Comp leted 03/01/2020 26944 Therapeutic, Prophylactic Or Hermelinda gnostic Injection Subq/Im Completed 03/01/2020 67095 Allergy Injection 2 Or More Comp leted 03/01/2020 20272 Allergy Injection 2 Or More Comp leted 02/08/2020 63932 Allergy Injection 2 Or More Comp leted Medical Devices Description No Information Available Encounters Type Date Location Provider Dx Diagnosis Office Visit 03/01/2020 2:45p Main Office Jesse Zamarripa M.D. T88.6xxA Anaphyl reaction due to advrs eff drug/med prop admin, init J30.1 Allergic rhinitis due to edin benoit J30.81 Allergic rhinitis due to ani mal (cat) (dog) hair and dander J30.89 Other allergic rhinitis Assessments Date Code Description Provider 08/07/2020 J30.1 Allergic rhinitis due to pollen Jesse Zamarripa M.D. 08/07/2020 J30.81 Allergic rhinitis due to animal (cat) (dog) hair and dander Jesse Zamarripa M.D. 08/07/2020 J30.89 Other allergic rhinitis Jesse Zamarripa M.D. Plan of Treatment Future Appointment(s):* 08/28/2020 10:20 am - Allergy Injection at Main Office 03/01/2020 - Jesse Zamarripa M.D.* T88.6xxA Anaphylactic [...]
--- OUTSIDE RECORDS SUMMARY | 2020-10-10 11:14 | CCD ---
Author Author [facility] Organization [facility] Address Unknown Phone Unavailable Care Team Providers Care Fruit Grader Name Role Phone Aly Moralez Unavailable PROBLEMS Type Condition ICD9-CM Code [id number] Code Onset Dates Condition S tatus SNOMED Code Notes Problem Obesity complicating in first trimester O99.21 1 Active Problem Supervision of other normal Z34.80 [facility] [id number] ALLERGIES No Known Allergies ENCOUNTERS from 1989 to 2020-07-13 Encounter Location Date Provider Diagnosis [facility] [address] [place] [phone] Jun, Aly Moralez IMMUNIZATIONS No Information SOCIAL HISTORY Tobacco Use: Social History Observation Description Date Details (start date - stop date) Never Smoker Sex Assigned At : Social History Observation Description Sex Assigned At Unknown Tobacco Use: Question Answer Notes Are you a: never smoker REASON FOR REFERRAL No Information VITAL SIGNS No information MEDICATIONS Medication SIG (Take, Route, Frequency, Duration) Start Date En d Date Status Sertraline HCl 50 MG 1 tablet Orally Once a day for 30 day(s) 2019 Active Omeprazole 10 MG 1 capsule 30 minutes before morning meal Orally On a day Active Zyrtec Allergy 10 MG 1 tablet Orally Once a day Active 27-1 MG 1 tablet Orally Once a day Active PROCEDURES No Information RESULTS No Results REASON FOR VISIT Prescription MEDICAL (GENERAL) HISTORY Type Description Date Medical History none Surgical History wisdom teeth extract Hospitalization History childbirth Goals Section No Information Health Concerns No Information MEDICAL EQUIPMENT No Information MENTAL STATUS No Information FUNCTIONAL STATUS No Information ASSESSMENTS No Information PLAN OF TREATMENT Medication Medication Name Sig Start Date Stop Date Sertraline HCl 50 MG 1 tablet Orally Once a day for 30 day(s) Jun, Next Appt Details Provider Name:Erin Ayla Trejoshona, 2020-07-31 02:40:00 PM, [address] [place], [address], Insurance Providers Payer Name Payer Address Payer Phone Insured Name Patient Relati onship to Insured Coverage Start Date Coverage End Date [place] [phone] MALVIN GARCIA self
--- OUTSIDE RECORDS SUMMARY | 2020-10-10 11:14 | CCD | Continuity of Care Document ---
Author Shahrzad Burk M.D. Organization Unknown Address [address], [place] [address] Phone [phone] Care Team Providers Care General Cleaner Name Role Phone Shelley Ambrosio Problems Active [...] Allergy Injection 2 Or More Injection Jesse Zaamrripa M.D. 02/08/2020 Allergy Injection 2 Or More [...] Information Available Procedures Date Code Description Status 07/16/2020 32133 Allergy Injection 2 Or More Comp leted 06/26/2020 59484 Allergy Injection 2 Or More Comp leted 06/26/2020 29282 Allergy Injection 2 Or More Comp leted 06/01/2020 77356 Allergy Injection 2 Or More Comp leted 05/11/2020 32373 Allergy Injection 2 Or More Comp leted 04/20/2020 61958 Allergy Injection 2 Or More Comp leted 03/26/2020 79002 Allergy Injection 2 Or More Comp leted 03/01/2020 23896 Therapeutic, Prophylactic Or Hermelinda gnostic Injection Subq/Im Completed 03/01/2020 27775 Allergy Injection 2 Or More Comp leted 03/01/2020 85289 Allergy Injection 2 Or More Comp leted 02/08/2020 78471 Allergy Injection 2 Or More Comp leted 02/03/2020 23133 Allergy Antigens Single Or Multi ple Completed 01/25/2020 50890 Allergy Injection 2 Or More Comp leted [...] allergic rhinitis Assessments Date Code Description Provider 07/16/2020 J30.1 Allergic rhinitis due to pollen Jesse Zamarripa M.D. 07/16/2020 J30.81 Allergic rhinitis due to animal (cat) (dog) hair and dander Jesse Zamarripa M.D. 07/16/2020 J30.89 Other allergic rhinitis eJsse Zamarripa M.D. Plan of Treatment Future Appointment(s):* 08/06/2020 10:20 am - Allergy Injection at Main [...]
--- OUTSIDE RECORDS SUMMARY | 2020-10-10 11:14 | CCD ---
Author Author [facility] Organization [facility] Address Unknown Phone Unavailable Care Team Providers Care Space Scheduler Name Role Phone ALBERT BRUMFIELD MD Unavailable Unavailable ALBERT BRUMFIELD MD Unavailable Unavailable ALBERT BRUMFIELD MD Unavailable Unavailable ALBERT BRUMFIELD MD Unavailable Unavailable ALBERT BRUMFIELD MD Unavailable Unavailable ALBERT BRUMFIELD MD Unavailable Unavailable ALBERT BRUMFIELD MD Unavailable Unavailable ALBERT BRUMFIELD MD Unavailable Unavailable ALBERT BRUMFIELD MD Unavailable Unavailable ALBERT BRUMFIELD MD Unavailable Unavailable ALBERT BRUMFIELD MD Unavailable Unavailable ALBERT BRUMFIELD MD Unavailable Unavailable ALBERT BRUMFIELD MD Unavailable Unavailable ALBERT BRUMFIELD MD Unavailable Unavailable ALBERT BRUMFIELD MD Unavailable Unavailable ALBERT BRUMFIELD MD Unavailable Unavailable ALBERT BRUMFIELD MD Unavailable Unavailable ALBERT BRUMFIELD MD Unavailable Unavailable ALBERT BRUMFIELD MD Unavailable Unavailable ALBERT BRUMFIELD MD Unavailable Unavailable ALBERT BRUMFIELD MD Unavailable Unavailable ALBERT BRUMFIELD MD Unavailable Unavailable ALBERT BRUMFIELD MD Unavailable Unavailable ALBERT BRUMFIELD MD Unavailable Unavailable ALBERT BRUMFIELD MD Unavailable Unavailable ALBERT BRUMFIELD MD Unavailable Unavailable ALBERT BRUMFIELD MD Unavailable Unavailable ALBERT BRUMFIELD MD Unavailable Unavailable ALBERT BRUMFIELD MD Unavailable Unavailable ALBERT BRUMFIELD MD Unavailable Unavailable ALBERT BRUMFIELD MD Unavailable Unavailable ALBERT BRUMFIELD MD Unavailable Unavailable ALBERT BRUMFIELD MD Unavailable Unavailable ALBERT BRUMFIELD MD Unavailable Unavailable CHROSTOWSKI, ALBERT MD Unavailable Unavailable CHROSTOWSKI, ALBERT MD Unavailable Unavailable CHROSTOWSKI, ALBERT MD Unavailable Unavailable CHROSTOWSKI, ALBERT MD Unavailable Unavailable CHROSTOWSKI, ALBERT MD Unavailable Unavailable CHROSTOWSKI, ALBERT MD Unavailable Unavailable MIRANDA-MARLON, JEANNETTE DO Unavailable Unavailable MIRANDA-MARLON, JEANNETTE DO Unavailable Unavailable MIRANDA-MARLON, JEANNETTE DO Unavailable Unavailable MIRANDA-MARLON, JEANNETTE DO Unavailable Unavailable MIRANDA-MARLON, JEANNETTE DO Unavailable Unavailable MIRANDA-MARLON, JEANNETTE DO Unavailable Unavailable MIRANDA-MARLON, JEANNETTE DO Unavailable Unavailable MIRANDA-MARLON, JEANNETTE DO Unavailable Unavailable MIRANDA-MARLON, JEANNETTE DO Unavailable Unavailable MIRANDA-MARLON, JEANNETTE DO Unavailable Unavailable MIRANDA-MARLON, JEANNETTE DO Unavailable Unavailable MIRANDA-MARLON, JEANNETTE DO Unavailable Unavailable MIRANDA-MARLON, JEANNETTE DO Unavailable Unavailable MIRANDA-MARLON, JEANNETTE DO Unavailable Unavailable MIRANDA-MARLON, JEANNETTE DO Unavailable Unavailable MIRANDA-MARLON, JEANNETTE DO Unavailable Unavailable MIRANDA-MARLON, JEANNETTE DO Unavailable Unavailable MIRANDA-MARLON, JEANNETTE DO Unavailable Unavailable MIRANDA-MARLON, JEANNETTE DO Unavailable Unavailable MIRANDA-MARLON, JEANNETTE DO Unavailable Unavailable MIRANDA-MARLON, JEANNETTE DO Unavailable Unavailable MIRANDA-MARLON, JEANNETTE DO Unavailable Unavailable MIRANDA-MARLON, JEANNETTE DO Unavailable Unavailable MIRANDA-MARLON, JEANNETTE DO Unavailable Unavailable MIRANDA-MARLON, JEANNETTE DO Unavailable Unavailable MIRANDA-MARLON, JEANNETTE DO Unavailable Unavailable MIRANDA-MARLON, JEANNETTE DO Unavailable Unavailable MIRANDA-MARLON, JEANNETTE DO Unavailable Unavailable MIRANDA-MARLON, JEANNETTE DO Unavailable Unavailable MIRANDA-MARLON, JEANNETTE DO Unavailable Unavailable MIRANDA-MARLON, JEANNETTE DO Unavailable Unavailable MIRANDA-MARLON, JEANNETTE DO Unavailable Unavailable MIRANDA-MARLON, JEANNETTE DO Unavailable Unavailable MIRANDA-MARLON, JEANNETTE DO Unavailable Unavailable MIRANDA-MARLON, JEANNETTE DO Unavailable Unavailable MIRANDA-MARLON, JEANNETTE DO Unavailable Unavailable MIRANDA-MARLON, JEANNETTE DO Unavailable Unavailable MIRANDA-MARLON, JEANNETTE DO Unavailable Unavailable MIRANDA-MARLON, JEANNETTE DO Unavailable Unavailable MIRANDA-MARLON, JEANNETTE DO Unavailable Unavailable MIRANDA-MARLON, JEANNETTE DO Unavailable Unavailable MIRANDA-MARLON, JEANNETTE DO Unavailable Unavailable MIRANDA-MARLON, JEANNETTE DO Unavailable Unavailable MIRANDA-MARLON, JEANNETTE DO Unavailable Unavailable MIRANDA-MARLON, JEANNETTE DO Unavailable Unavailable MIRANDA-MARLON, JEANNETTE DO Unavailable Unavailable MIRANDA-MARLON, JEANNETTE DO Unavailable Unavailable MIRANDA-MARLON, JEANNETTE DO Unavailable Unavailable MIRANDA-MARLON, JEANNETTE DO Unavailable Unavailable MIRANDA-MARLON, JEANNETTE DO Unavailable Unavailable MIRANDA-MARLON, JEANNETTE DO Unavailable Unavailable MIRANDA-MARLON, JEANNETTE DO Unavailable Unavailable MIRANDA-MARLON, JEANNETTE DO Unavailable Unavailable MIRANDA-MARLON, JEANNETTE DO Unavailable Unavailable MIRANDA-MARLON, JEANNETTE DO Unavailable Unavailable MIRANDA-MARLON, JEANNETTE DO Unavailable Unavailable MIRANDA-MARLON, JEANNETTE DO Unavailable Unavailable MIRANDA-MARLON, JEANNETTE DO Unavailable Unavailable MIRANDA-MARLON, JEANNETTE DO Unavailable Unavailable MIRANDA-MARLON, JEANNETTE DO Unavailable Unavailable MIRANDA-MARLON, JEANNETTE DO Unavailable Unavailable MIRANDA-MARLON, JEANNETTE DO Unavailable Unavailable MIRANDA-MARLON, JEANNETTE DO Unavailable Unavailable MIRANDA-MARLON, JEANNETTE DO Unavailable Unavailable MIRANDA-MARLON, JEANNETTE DO Unavailable Unavailable MIRANDA-MARLON, JEANNETTE DO Unavailable Unavailable MIRANDA-MARLON, JEANNETTE DO Unavailable Unavailable MIRANDA-MARLON, JEANNETTE DO Unavailable Unavailable MIRANDA-MARLON, JEANNETTE DO Unavailable Unavailable MIRANDA-MARLON, JEANNETTE DO Unavailable Unavailable MIRANDA-MARLON, JEANNETTE DO Unavailable Unavailable MIRANDA-MARLON, JEANNETTE DO Unavailable Unavailable MIRANDA-MARLON, JEANNETTE DO Unavailable Unavailable MIRANDA-MARLON, JEANNETTE DO Unavailable Unavailable MIRANDA-MARLON, JEANNETTE DO Unavailable Unavailable MIRANDA-MARLON, JEANNETTE DO Unavailable Unavailable MIRANDA-MARLON, JEANNETTE DO Unavailable Unavailable MIRANDA-MARLON, JEANNETTE DO Unavailable Unavailable MIRANDA-MARLON, JEANNETTE DO Unavailable Unavailable MIRANDA-MARLON, JEANNETTE DO Unavailable Unavailable MIRANDA-MARLON, JEANNETTE DO Unavailable Unavailable Vinayak, L Malvin USED CAR SALESPERSON Unavailable Unavailable Pomfret, L Malvin USED CAR SALESPERSON Unavailable Unavailable Pomfret, L Malvin USED CAR SALESPERSON Unavailable Unavailable Vinayak, L Malvin USED CAR SALESPERSON Unavailable Unavailable Vinayak, L Malvin USED CAR SALESPERSON Unavailable Unavailable Vinayak, L Malvin USED CAR SALESPERSON Unavailable Unavailable Vinayak, L Malvin USED CAR SALESPERSON Unavailable Unavailable Vinayak, L Malvin USED CAR SALESPERSON Unavailable Unavailable Vinayak, L Malvin USED CAR SALESPERSON Unavailable Unavailable Vinayak, L Malvin USED CAR SALESPERSON Unavailable Unavailable Pomfret, L Malvin USED CAR SALESPERSON Unavailable Unavailable Pomfret, L Malvin USED CAR SALESPERSON Unavailable Unavailable Pomfret, L Malvin USED CAR SALESPERSON Unavailable Unavailable Pomfret, L Malvin USED CAR SALESPERSON Unavailable Unavailable Pomfret, L Malvin USED CAR SALESPERSON Unavailable Unavailable Vinayak, L Malvin USED CAR SALESPERSON Unavailable Unavailable Pomfret, L Malvin USED CAR SALESPERSON Unavailable Unavailable Pomfret, L Malvin USED CAR SALESPERSON Unavailable Unavailable Pomfret, L Malvin USED CAR SALESPERSON Unavailable Unavailable Vinayak, L Malvin USED CAR SALESPERSON Unavailable Unavailable Vinayak, L Malvin USED CAR SALESPERSON Unavailable Unavailable Pomfret, L Malvin USED CAR SALESPERSON Unavailable Unavailable Pomfret, L Malvin USED CAR SALESPERSON Unavailable Unavailable Pomfret, L Malvin USED CAR SALESPERSON Unavailable Unavailable Vinayak, L Malvin USED CAR SALESPERSON Unavailable Unavailable Pomfret, L Malvin USED CAR SALESPERSON Unavailable Unavailable Pomfret, L Malvin USED CAR SALESPERSON Unavailable Unavailable Vinayak, L Malvin USED CAR SALESPERSON Unavailable Unavailable Pomfret, L Malvin USED CAR SALESPERSON Unavailable Unavailable Vinayak, L Malvin USED CAR SALESPERSON Unavailable Unavailable Pomfret, L Malvin USED CAR SALESPERSON Unavailable Unavailable Vinayak, L Malvin USED CAR SALESPERSON Unavailable Unavailable Re-disclosure Warning The records that you are about to access may contain information from federally-assisted alcohol or drug abuse programs. If such information is present, then the following federally mandated warning applies: This information has been disclosed to you from records protected by federal confidentiality rules (42 CFR part 2). The federal rules prohibit you from making any further disclosure of this information unless further disclosure is expressly permitted by the written consent of the person to whom it pertains or as otherwise permitted by 42 CFR part 2. A general authorization for the release of medical or other information is NOT sufficient for this purpose. The Federal rules restrict any use of the information to criminally investigate or prosecute any alcohol or drug abuse patient.The records that you are about to access may contain highly sensitive health information, the redisclosure of which is protected by Article 27-F of the [facility] Public Health law. If you continue you may have access to information: Regarding HIV / AIDS; Provided by facilities licensed or operated by the [facility] Office of Mental Health; or Provided by the [facility] Office for People With Developmental Disabilities. If such information is present, then the following [facility] mandated warning applies: This information has been disclosed to you from confidential records which are protected by state law. State law prohibits you from making any further disclosure of this information without the specific written consent of the person to whom it pertains, or as otherwise permitted by law. Any unauthorized further disclosure in violation of state law may result in a fine or half-way sentence or both. A general authorization for the release of medical or other information is NOT sufficient authorization for further disc losure. Family History Family Member Name Family Member Gender Family Member Status Date o f Status Description Data Source(s) Unknown Male Problem [facility] ([facility]) Encounters Encounter Providers Location Date Indications Data Source(s ) ( ESTOB) [facility] [address] [place] [address] 10/01/2020 12:00:00 AM EST eCW1 ([facility]) ( ESTOB) [facility] [address] [place] [address] 09/18/2020 12:00:00 AM EST eCW1 ([facility]) ( ESTOB) [facility] [address] [place] [address] 08/29/2020 12:00:00 AM EST eCW1 ([facility]) Unknown [address] [facility] [address] 07/12/2020 12:00:00 AM EDT eCW1 ([facility]) Unknown [address] [facility] [address] 07/12/2020 12:00:00 AM EDT eCW1 ([facility]) ( ESTOB) [facility] [address] [place] [address] 07/11/2020 12:00:00 AM EDT eCW1 ([facility]) ( ESTOB) [facility] [address] [place] [address] 04/12/2020 12:00:00 AM EDT eCW1 ([facility]) Outpatient Attender: ALBERT BRUMFIELD MD Main Office 03/01/2020 02:45:00 PM EDT [facility] ([facility]) Office Visit Attender: Malvin ISRAEL Main Office 12/19/2019 09 :15:00 AM EDT [facility] ([facility] ) Outpatient Attender: JEANNETTE HERMAN DO Family Medicine [facility] 09/05/2019 12:40:00 PM EST [facility] ([facility]) Immunizations Vaccine Date Status Description Data Source(s) Tdap 08/29/2020 03:12:00 PM EST completed e CW1 ([facility]) Tdap 08/29/2020 03:12:00 PM EST completed e CW1 ([facility]) Tdap 08/29/2020 03:12:00 PM EST completed e CW1 ([facility]) Medications Medication Brand Name Start Date Product Form Dose Route Admi nistrative Instructions Pharmacy Instructions Status Indications Reaction Description Data Source(s) Allergy Injection 2 Or More 09/18/2020 12:00:00 AM EST completed [facility] ([facility]) Medication administered onsite Allergy Injection 2 Or More 08/31/2020 12:00:00 AM EST completed [facility] ([facility]) Medication administered onsite Allergy Injection 2 Or More 08/07/2020 12:00:00 AM EST completed [facility] ([facility]) Medication administered onsite Allergy Injection 2 Or More 07/16/2020 12:00:00 AM EDT completed [facility] ([facility]) Medication administered onsite Sertraline 50 MG Oral Tablet Sertraline HCl 50 MG Sertraline HCl 50 MG 07/12/2020 12:00:00 AM EDT 1.0 {tablet} suspende d Sertraline HCl 50 MG eCW1 ([facility]) Sertraline 50 MG Oral Tablet Sertraline HCl 50 MG Sertraline HCl 50 MG 07/12/2020 12:00:00 AM EDT 1.0 {tablet} suspende d Sertraline HCl 50 MG eCW1 ([facility]) Sertraline 50 MG Oral Tablet Sertraline HCl 50 MG Sertraline HCl 50 MG 07/12/2020 12:00:00 AM EDT 1.0 {tablet} suspende d Sertraline HCl 50 MG eCW1 ([facility]) Sertraline 50 MG Oral Tablet Sertraline HCl 50 MG Sertraline HCl 50 MG 07/12/2020 12:00:00 AM EDT 1.0 {tablet} suspende d Sertraline HCl 50 MG eCW1 ([facility]) Sertraline 50 MG Oral Tablet Sertraline HCl 50 MG Sertraline HCl 50 MG 07/12/2020 12:00:00 AM EDT 1.0 {tablet} active Sertraline HCl 50 MG eCW1 ([facility]) Sertraline 50 MG Oral Tablet Sertraline HCl 50 MG Sertraline HCl 50 MG 07/12/2020 12:00:00 AM EDT 1.0 {tablet} active Sertraline HCl 50 MG eCW1 ([facility]) Sertraline 50 MG Oral Tablet Sertraline HCl 50 MG Sertraline HCl 50 MG 07/12/2020 12:00:00 AM EDT 1.0 {tablet} active Sertraline HCl 50 MG eCW1 ([facility]) Allergy Injection 2 Or More 06/26/2020 12:00:00 AM EDT completed [facility] ([facility]) Medication administered onsite Allergy Injection 2 Or More 06/26/2020 12:00:00 AM EDT completed [facility] ([facility]) Medication administered onsite Allergy Injection 2 Or More 06/01/2020 12:00:00 AM EDT completed [facility] ([facility]) Medication administered onsite Allergy Injection 2 Or More 05/11/2020 12:00:00 AM EDT completed [facility] ([facility]) Medication administered onsite Allergy Injection 2 Or More 04/20/2020 12:00:00 AM EDT completed [facility] ([facility]) Medication administered onsite Allergy Injection 2 Or More 03/26/2020 12:00:00 AM EDT completed [facility] ([facility]) Medication administered onsite Therapeutic, Prophylactic Or Diagnostic Injection Subq/Im 03/01/2020 12:00:00 AM EDT completed [facility] ([facility]) Medication administered onsite Allergy Injection 2 Or More 03/01/2020 12:00:00 AM EDT completed [facility] ([facility]) Medication administered onsite Allergy Injection 2 Or More 03/01/2020 12:00:00 AM EDT completed [facility] ([facility]) Medication administered onsite Allergy Injection 2 Or More 02/08/2020 12:00:00 AM EDT completed [facility] ([facility]) Medication administered onsite Allergy Injection 2 Or More 01/25/2020 12:00:00 AM EDT completed [facility] ([facility]) Medication administered onsite Allergy Injection 2 Or More 12/22/2019 12:00:00 AM EDT completed [facility] ([facility]) Medication administered onsite Allergy Injection 2 Or More 12/01/2019 12:00:00 AM EST completed [facility] ([facility]) Medication administered onsite Allergy Injection 2 Or More 11/07/2019 12:00:00 AM EST completed [facility] ([facility]) Medication administered onsite Allergy Injection 2 Or More 10/12/2019 12:00:00 AM EST completed [facility] ([facility]) Medication administered onsite Allergy Injection 2 Or More 09/26/2019 12:00:00 AM EST completed [facility] ([facility]) Medication administered onsite Allergy Injection 2 Or More 09/09/2019 12:00:00 AM EST completed [facility] ([facility]) Medication administered onsite Allergy Injection 2 Or More 09/02/2019 12:00:00 AM EST completed [facility] ([facility]) Medication administered onsite Allergy Injection 2 Or More 08/22/2019 12:00:00 AM EST completed [facility] ([facility]) Medication administered onsite Allergy Injection 2 Or More 08/12/2019 12:00:00 AM EST completed [facility] ([facility]) Medication administered onsite Insurance Providers Payer name Policy type / Coverage type Policy ID Covered libertarian ID Covered libertarian's relationship to waite Policy Waite Plan Information [facility] [id number] SP [id number] SELF PAY ONLY [id number] SP [id number] SELF PAY O UNAVAILABLE S UNAVAILA BLE [facility] O [id number] S [id number] [facility] [id number] SP [id number] [facility] [id number] SP [id number] [facility] [id number] SP [id number] [facility] U [id number] Se lf [id number] [facility] [id number] Commercial [employer] ns[employer]. [id number] [facility] Commercial [id number] Self [id number] [facility] Commercial [id number] Self 00 [id number] [facility] Commercial [id number] Self 00 [id number] [facility] Commercial [id number] Self [id number] Problems, Conditions, and Diagnoses Code Display Name Description Problem Type Effective Dates Data Source(s) E66.9 Obesity Obesity Problem 08/29/2020 12:00:00 AM ES T eCW1 ([facility]) O99.213 Maternal obesity complicatin g , childbirth and the puerperium, antepartum Obesity affecting in third trimester Problem 08/29/2020 12:00:00 AM EST eCW1 ([facility]) Z34.80 care Supervision of other normal P roblem 04/12/2020 12:00:00 AM EDT eCW1 ([facility]) O99.211 Obesity complicating , first tr imester Obesity complicating in first trimester Problem 04/12/2020 12:00:00 AM EDT eCW1 ([facility]) [id number] Anaphylaxis Anaphylaxis Problem 03/01/2020 12:00:00 AM EDT [facility] ([facility]) Surgeries/Procedures Procedure Description Date Indications Data Source(s) PROF ANAYA ALLG IMMNTX X W/PRV ALLGIC XTRCS NJXS 2019 12:00:00 AM EST [facility] ([facility]) PROF MAYA ALLG IMMNTX X W/PRV ALLGIC XTRCS NJXS 2019 12:00:00 AM EST [facility] ([facility]) Immunization: Boostrix 0.5mL IM (TDAP) 08/29/2020 12:0 0:00 AM EST eCW1 ([facility]) PROF MAYA ALLG IMMNTX X W/PRV ALLGIC XTRCS NJXS 2019 12:00:00 AM EST [facility] ([facility]) PREPJ& ALLERGEN IMMUNOTHERAPY 1/RESIDENTIAL REAL ESTATE ASSISTANT ANTIGEN 07/19/2020 12:00:00 AM EDT [facility] ([facility]) PROF HÉCTOR ALLG IMMNTX X W/PRV ALLGIC XTRCS NJXS 2019 12:00:00 AM EDT [facility] ([facility]) PROF HÉCTOR ALLG IMMNTX X W/PRV ALLGIC XTRCS NJXS 2019 12:00:00 AM EDT [facility] ([facility]) PROF HÉCTOR ALLG IMMNTX X W/PRV ALLGIC XTRCS NJXS 2019 12:00:00 AM EDT [facility] ([facility]) PROF HÉCTOR ALLG IMMNTX X W/PRV ALLGIC XTRCS NJXS 2019 12:00:00 AM EDT [facility] ([facility]) PROF HÉCTOR ALLG IMMNTX X W/PRV ALLGIC XTRCS NJXS 2019 12:00:00 AM EDT [facility] ([facility]) PROF HÉCTOR ALLG IMMNTX X W/PRV ALLGIC XTRCS NJXS 2019 12:00:00 AM EDT [facility] ([facility]) PROF HÉCTOR ALLG IMMNTX X W/PRV ALLGIC XTRCS NJXS 2019 12:00:00 AM EDT [facility] ([facility]) PROF HÉCTOR ALLG IMMNTX X W/PRV ALLGIC XTRCS NJXS 2019 12:00:00 AM EDT [facility] ([facility]) PROF HÉCTOR ALLG IMMNTX X W/PRV ALLGIC XTRCS NJXS 2019 12:00:00 AM EDT MED[facility] ([facility]) THERAPEUTIC PROPHYLACTIC/DX INJECTION SUBQ/IM 03/01/20 12:00:00 AM EDT [facility] ([facility]) PROF MAYA ALLG IMMNTX X W/PRV ALLGIC XTRCS NJXS 2019 12:00:00 AM EDT MED[facility] ([facility]) PREPJ& ALLERGEN IMMUNOTHERAPY 1/RESIDENTIAL REAL ESTATE ASSISTANT ANTIGEN 02/03/2020 12:00:00 AM EDT MED[facility] ([facility]) PROF MAYA ALLG IMMNTX X W/PRV ALLGIC XTRCS NJXS 2019 12:00:00 AM EDT MED[facility] ([facility]) PROF MAYA ALLG IMMNTX X W/PRV ALLGIC XTRCS NJXS 2019 12:00:00 AM EDT MED[facility] ([facility]) PROF HÉCTOR ALLG IMMNTX X W/PRV ALLGIC XTRCS NJXS 2019 12:00:00 AM EST [facility] ([facility]) PROF HÉCTOR ALLG IMMNTX X W/PRV ALLGIC XTRCS NJXS 2019 12:00:00 AM EST [facility] ([facility]) PROF MAYA ALLG IMMNTX X W/PRV ALLGIC XTRCS NJXS 2019 12:00:00 AM EST [facility] ([facility]) PROF MAYA ALLG IMMNTX X W/PRV ALLGIC XTRCS NJXS 2018 12:00:00 AM EST [facility] ([facility]) PROF HÉCTOR ALLG IMMNTX X W/PRV ALLGIC XTRCS NJXS 2018 12:00:00 AM EST [facility] ([facility]) PROF MAYA ALLG IMMNTX X W/PRV ALLGIC XTRCS NJXS 2018 12:00:00 AM EST MED[facility] ([facility]) PROF ANAYA ALLG IMMNTX X W/PRV ALLGIC XTRCS NJXS 2018 12:00:00 AM EST MED[facility] ([facility]) PROF HÉCTOR ALLG IMMNTX X W/PRV ALLGIC XTRCS NJXS 2018 12:00:00 AM EST [facility] ([facility]) Results ID Date Data Source GROUP B STREP CULTURE 09/18/2020 12:00:00 AM EST [facility]CW[facility] Name Value Range Interpretation Code Description Data Clementina rce(s) Supporting Document(s) GROUP B STREP CULTURE eCW1 ([facility]) ID Date Data Source Glucose Challenge Test 1 Hour 08/07/2020 10:53:41 AM EST eCW 1 ([facility]) Name Value Range Interpretation Code Description Data Clementina rce(s) Supporting Document(s) 112 GLUCOSE CHALLENGE TEST 1 HOUR eCW1 ([facility]) ID Date Data Source Type and Screen (D Rh Antibody Screen) 08/07/2020 10:53:39 A M EST eCW1 ([facility]) Name Value Range Interpretation Code Description Data Clementina rce(s) Supporting Document(s) NEGATIVE AB SCREEN (INDIRECT COOMB S)VIS eCW1 ([facility]) A POSITIVE BLOOD TYPE eCW1 ([facility]) ID Date Data Source CBC - Complete Blood Count 08/07/2020 10:53:36 AM EST eCW1 ( [facility]) Name Value Range Interpretation Code Description Data Clementina rce(s) Supporting Document(s) 11.8 HEMOGLOBIN eCW1 ([facility]) 8.4 WHITE BLOOD COUNT eCW1 ([facility]) 36.9 HEMATOCRIT eCW1 ([facility]) 4.10 RED BLOOD COUNT eCW1 ([facility]) 32.0 MEAN CORPUSCULAR HGB CONC eCW1 ([facility]) 90.0 MEAN CORPUSCULAR VOLUME eCW1 ( [facility]) 28.8 MEAN CORPUSCULAR HEMOGLOBIN eC W1 ([facility]) 14.0 RED CELL DISTRIBUTION WIDTH eC W1 ([facility]) 224 PLATELET COUNT, AUTOMATED eCW1 ([facility]) ID Date Data Source FREE T4 & TSH PANEL 06/29/2020 05:07:03 AM EDT eCW1 ([facility]) Name Value Range Interpretation Code Description Data Clementina rce(s) Supporting Document(s) 0.049 eCW1 ([facility]) 1.13 eCW1 ([facility]) ID Date Data Source [id number] 06/29/2020 05:06:53 AM EDT eCW1 ([facility]) Name Value Range Interpretation Code Description Data Clementina rce(s) Supporting Document(s) Hemoglobin A1c/Hemoglobin.total in Blood 5.4 [facility]1 [facility] [place]) ID Date Data Source Type and Screen Prenatal1 06/29/2020 05:06:32 AM EDT eCW1 (Replaced by [facility]) Name Value Range Interpretation Code Description Data Clementina rce(s) Supporting Document(s) NEGATIVE eCW1 ([facility]) ID Date Data Source HBSAG 06/29/2020 05:06:20 AM EDT eCW1 ([facility]) Name Value Range Interpretation Code Description Data Clementina rce(s) Supporting Document(s) NEGATIVE eCW1 ([facility]) ID Date Data Source HEPATITIS C ANTIBODY INDEX 06/29/2020 05:06:13 AM EDT eCW1 ( [facility]) Name Value Range Interpretation Code Description Data Clementina rce(s) Supporting Document(s) 0.1 eCW1 ([facility]) ID Date Data Source CHLAMYDIA & GC DNA AMPLIFICAT 06/29/2020 05:06:05 AM EDT eCW 1 ([facility]) Name Value Range Interpretation Code Description Data Clementina rce(s) Supporting Document(s) Chlamydia trachomatis rRNA [Presence] in Unspecified specimen by Probe and target amplification method NEGATIVE eCW1 ([facility]) ID Date Data Source URINE CULTURE 06/29/2020 05:05:57 AM EDT eCW1 ([facility]) Name Value Range Interpretation Code Description Data Clementina rce(s) Supporting Document(s) eCW1 ([facility]) ID Date Data Source RUBELLA IMMUNE STATUS IgG 06/29/2020 05:05:46 AM EDT eCW1 (Replaced by [facility]) Name Value Range Interpretation Code Description Data Clementina rce(s) Supporting Document(s) IMMUNE eCW1 ([facility]) ID Date Data Source SYPHILIS ANTIBODY (RPR SCREEN) 06/29/2020 05:05:28 AM EDT eC W1 ([facility]) Name Value Range Interpretation Code Description Data Clementina rce(s) Supporting Document(s) NONREACTIVE eCW1 ([facility]) ID Date Data Source [id number] 06/29/2020 05:05:19 AM EDT eCW1 ([facility]) Name Value Range Interpretation Code Description Data Clementina rce(s) Supporting Document(s) eCW1 ([facility]) Procedure Social History Code Duration Value Status Description Data Source(s ) Smoking 09/26/2020 12:00:00 AM EST Never Smoker completed Never S moker eCW1 ([facility]) Smoking 09/17/2020 12:00:00 AM EST Never Smoker completed Never S moker eCW1 ([facility]) Smoking 08/29/2020 12:00:00 AM EST Never Smoker completed Never S moker eCW1 ([facility]) Smoking 08/06/2020 12:00:00 AM EST Never Smoker completed Never S moker eCW1 ([facility]) Smoking 07/09/2020 12:00:00 AM EDT Never Smoker completed Never S moker eCW1 ([facility]) Smoking 07/09/2020 12:00:00 AM EDT Never Smoker completed Never S moker eCW1 ([facility]) Smoking 07/09/2020 12:00:00 AM EDT Never Smoker completed Never S moker eCW1 ([facility]) Vital Signs ID Date Data Source UNK Name Value Range Interpretation Code Description Data Source(s) Diastolic blood pressure 70 mm[Hg] 70 mm[Hg] eCW1 ([facility]) Systolic blood pressure 124 mm[Hg] 124 mm[Hg] e CW1 ([facility]) Body mass index (BMI) [Ratio] 39.726 kg/m2 39.7 26 kg/m2 W1 ([facility]) Body height 62 [in_i] 62 [in_i] eCW1 ([facility]) Body weight 98.52 kg 98.52 kg eCW1 ([facility]) Body weight 217.2 [lb_av] 217.2 [lb_av] eCW1 (Replaced by [facility]) Diastolic blood pressure 62 mm[Hg] 62 mm[Hg] eCW1 ([facility]) Systolic blood pressure 118 mm[Hg] 118 mm[Hg] e CW1 ([facility]) Body mass index (BMI) [Ratio] 39.873 kg/m2 39.8 73 kg/m2 eCW1 ([facility]) Body height 62 [in_i] 62 [in_i] eCW1 ([facility]) Body weight 218 [lb_av] 218 [lb_av] eCW1 ([facility]) Diastolic blood pressure 70 mm[Hg] 70 mm[Hg] eCW1 ([facility]) Systolic blood pressure 118 mm[Hg] 118 mm[Hg] e CW1 ([facility]) Body mass index (BMI) [Ratio] 38.775 kg/m2 38.7 75 kg/m2 eCW1 ([facility]) Body height 62 [in_i] 62 [in_i] eCW1 ([facility]) Body weight 212 [lb_av] 212 [lb_av] eCW1 ([facility]) Diastolic blood pressure 70 mm[Hg] 70 mm[Hg] eCW1 ([facility]) Systolic blood pressure 100 mm[Hg] 100 mm[Hg] e CW1 ([facility]) Body mass index (BMI) [Ratio] 38.19 kg/m2 38.19 kg/m2 eCW1 ([facility]) Body height 62 [in_i] 62 [in_i] eCW1 ([facility]) Body weight 94.71 kg 94.71 kg eCW1 ([facility]) Body weight 208.8 [lb_av] 208.8 [lb_av] eCW1 (Replaced by [facility]) Diastolic blood pressure 72 mm[Hg] 72 mm[Hg] eCW1 ([facility]) Systolic blood pressure 124 mm[Hg] 124 mm[Hg] e CW1 ([facility]) Body mass index (BMI) [Ratio] 36.032 kg/m2 36.0 32 kg/m2 eCW1 ([facility]) Body height 62 [in_i] 62 [in_i] eCW1 ([facility]) Body weight 197 [lb_av] 197 [lb_av] eCW1 ([facility]) Oxygen saturation in Arterial blood by Pulse oximetry 98 % 98 % MEDENT ([facility]) Body temperature 98.8 [degF] 98.8 [degF] MEDENT ([facility]) Respiratory rate 18 /min 18 /min [facility] ( [facility]) Heart rate 90 /min 90 /min [facility] ([facility]) Body mass index (BMI) [Ratio] 37.4 kg/m2 37.4 k g/m2 [facility] ([facility]) Body weight 203.25 [lb_av] 203.25 [lb_av] MEDEN T ([facility]) Body height 61.8 [in_i] 61.8 [in_i] MEDENT ([facility]) 5'1.80" Diastolic blood pressure 62 mm[Hg] 62 mm[Hg] MED[facility] ([facility]) Systolic blood pressure 114 mm[Hg] 114 mm[Hg] M EDENT ([facility]) Patient Treatment Plan of Care Planned Activity Planned Date Details Description Data Source (s) Sertraline 50 MG Oral Tablet 07/12/2020 12:00:00 AM EDT eCW1 ([facility]) Sertraline 50 MG Oral Tablet 07/12/2020 12:00:00 AM EDT eCW1 ([facility]) Sertraline 50 MG Oral Tablet 07/12/2020 12:00:00 AM EDT eCW1 ([facility])
--- OUTSIDE RECORDS SUMMARY | 2020-10-10 11:14 | CCD | Continuity of Care Document ---
Author Shahrzad Burk M.D. Organization Unknown Address [address], [place] [address] Phone [phone] Care Team Providers Care Boot Liner Maker Name Role Phone Shelley Ambrosio Problems Active [...] Allergy Injection 2 Or More Injection Jesse Zmaarripa M.D. 02/08/2020 Allergy Injection 2 Or More [...] Allergy Injection 2 Or More Injection Jesse Zamarirpa M.D. 08/12/2019 Allergy Injection 2 Or More [...] Information Available Procedures Date Code Description Status 08/31/2020 40265 Allergy Injection 2 Or More Comp leted 08/07/2020 12479 Allergy Injection 2 Or More Comp leted 07/19/2020 75799 Allergy Antigens Single Or Multi ple Completed 07/16/2020 69109 Allergy Injection 2 Or More Comp leted 06/26/2020 43819 Allergy Injection 2 Or More Comp leted 06/26/2020 10718 Allergy Injection 2 Or More Comp leted 06/01/2020 71755 Allergy Injection 2 Or More Comp leted 05/11/2020 52726 Allergy Injection 2 Or More Comp leted 04/20/2020 49732 Allergy Injection 2 Or More Comp leted 03/26/2020 45977 Allergy Injection 2 Or More Comp leted Medical Devices Description No Information Available Encounters Description No Information Available Assessments Date Code Description Provider 08/31/2020 J30.1 Allergic rhinitis due to pollen Jesse Zamarripa M.D. 08/31/2020 J30.81 Allergic rhinitis due to animal (cat) (dog) hair and dander Jesse Zamarripa M.D. 08/31/2020 J30.89 Other allergic rhinitis Jesse Zamarripa M.D. Plan of Treatment Future Appointment(s):* 09/19/2020 11:20 am - Allergy Injection at Main Office [...]
--- OUTSIDE RECORDS SUMMARY | 2020-10-10 11:14 | CCD ---
Author Author [facility] Organization [facility] Address Unknown Phone Unavailable Care Team Providers Care Building Operator Name Role Phone Aly Moralez Unavailable PROBLEMS Type Condition ICD9-CM Code [id number] Code Onset Dates Condition S tatus SNOMED Code Notes Problem Obesity complicating in first trimester O99.21 1 Active Problem Supervision of other normal Z34.80 [facility] [id number] ALLERGIES No Known Allergies ENCOUNTERS from 1989 to 2020-07-13 Encounter Location Date Provider Diagnosis [facility] [address] [place] [phone] Jun, Aly Moralez IMMUNIZATIONS No Information SOCIAL [...] Name:Erin Ayla Trejoshona, 2020-07-31 02:40:00 PM, [address] [place], [address], Insurance Providers Payer Name Payer Address Payer Phone Insured Name Patient Relati onship to Insured Coverage Start Date Coverage End Date [place] [phone] MALVIN GARCIA self
--- OUTSIDE RECORDS SUMMARY | 2020-10-10 11:14 | CCD | Continuity of Care Document ---
Author Shahrzad Burk M.D. Organization Unknown Address [address], [address], [place] [address] Phone [phone] Care Team Providers Care Account Services Representative Name Role Phone Shelley Ambrosio Problems Active [...] Information Available Procedures Date Code Description Status 07/19/2020 41485 Allergy Antigens Single Or Multi ple Completed 07/16/2020 91044 Allergy Injection 2 Or More Comp leted 06/26/2020 25937 Allergy Injection 2 Or More Comp leted 06/26/2020 55186 Allergy Injection 2 Or More Comp leted 06/01/2020 85173 Allergy Injection 2 Or More Comp leted 05/11/2020 85931 Allergy Injection 2 Or More Comp leted 04/20/2020 91709 Allergy Injection 2 Or More Comp leted 03/26/2020 14585 Allergy Injection 2 Or More Comp leted 03/01/2020 05576 Therapeutic, Prophylactic Or Hermelinda gnostic Injection Subq/Im Completed 03/01/2020 23729 Allergy Injection 2 Or More Comp leted 03/01/2020 37375 Allergy Injection 2 Or More Comp leted 02/08/2020 45959 Allergy Injection 2 Or More Comp leted 02/03/2020 25817 Allergy Antigens Single Or Multi ple Completed 01/25/2020 81047 Allergy Injection 2 Or More Comp leted [...] allergic rhinitis Assessments Date Code Description Provider 07/19/2020 J30.1 Allergic rhinitis due to pollen Jesse Zamarripa M.D. 07/19/2020 J30.81 Allergic rhinitis due to animal (cat) (dog) hair and dander Jesse Zamarripa M.D. 07/19/2020 J30.89 Other allergic rhinitis Jesse Zamarripa M.D. [...]
--- OUTSIDE RECORDS SUMMARY | 2020-10-10 11:14 | CCD ---
Author Author [facility] Organization [facility] Address Unknown Phone Unavailable Care Team Providers Care Banquet Steward Name Role Phone Erin Valle Unavailable PROBLEMS Type Condition ICD9-CM Code [id number] Code Onset Dates Condition S tatus SNOMED Code Notes Problem Obesity complicating in first trimester O99.21 1 Active Problem Supervision of other normal Z34.80 tive [id number] ALLERGIES No Known Allergies ENCOUNTERS from 1989 to 2020-07-25 Encounter Location Date Provider Diagnosis [facility] [address] [place] [phone] Mar, Erinluigi Valle Obesity complicat ing in first trimester O99.211 ; Weeks of gestation of not specified Z3A.00 and Obesity, unspecified classification, unspecified obesity type, unspecified whether serious comorbidity present E66.9 IMMUNIZATIONS No Information SOCIAL HISTORY Tobacco Use: Social History Observation Description Date Details (start date - stop date) Never Smoker Sex Assigned At : Social History Observation Description Sex Assigned At Unknown Tobacco Use: Question Answer Notes Are you a: never smoker REASON FOR REFERRAL No Information VITAL SIGNS Weight 197 lbs Mar, Height 62 in Mar, BMI 36.032 kg/m2 Mar, Blood pressure systolic 124 mm Hg Mar, Blood pressure diastolic 72 mm Hg Mar, MEDICATIONS Medication SIG (Take, Route, Frequency, Duration) Start Date En d Date Status Sertraline HCl 50 MG 1 tablet Orally Once a day for 30 day(s) 2019 Active Omeprazole 10 MG 1 capsule 30 minutes before morning meal Orally On ce a day Active Zyrtec Allergy 10 MG 1 tablet Orally Once a day Active 27-1 MG 1 tablet Orally Once a day Active PROCEDURES No Information RESULTS REASON FOR VISIT 1ST PN MEDICAL (GENERAL) HISTORY Type Description Date Medical History none Surgical History wisdom teeth extract Hospitalization History childbirth Goals Section No Information Health Concerns No Information MEDICAL EQUIPMENT No Information MENTAL STATUS No Information FUNCTIONAL STATUS No Information ASSESSMENTS Encounter Date Diagnosis Notes Mar, Obesity, unspecified classif ication, unspecified obesity type, unspecified whether serious comorbidity present (ICD-10 - E66.9) Mar, Weeks of gestation of not spec ified (ICD-10 - Z3A.00) Mar, Obesity complicating pregnan cy in first trimester (ICD-10 - O99.211) PLAN OF TREATMENT Medication Medication Name Sig Start Date Stop Date Sertraline HCl 50 MG 1 tablet Orally Once a day for 30 day(s) Jun, Treatment Notes Test Name Order Date OB<14WKS SINGLE OR 1ST GEST 2020-07-25 Next Appt Details 4 Weeks Reason:return ob Provider Name:Erin Valle 2020-07-31 02:40:00 PM, [address] [place], [address], Follow Up:4 Weeksreturn ob Insurance Providers Payer Name Payer Address Payer Phone Insured Name Patient Relati onship to Insured Coverage Start Date Coverage End Date [address] [phone] MALVIN GARCIA self
--- OUTSIDE RECORDS SUMMARY | 2020-10-10 11:14 | CCD ---
Author Author [facility] Organization [facility] Address Unknown Phone Unavailable Care Team Providers Care Sap Security Consultant Name Role Phone MoralezAly Unavailable PROBLEMS Type Condition ICD9-CM Code [id number] Code Onset Dates Condition S tatus SNOMED Code Notes Problem Obesity complicating in first trimester O99.21 1 Active Problem Supervision of other normal Z34.80 Ac tive [id number] ALLERGIES No Known Allergies ENCOUNTERS from 1989 to 2020-08-08 Encounter Location Date Provider Diagnosis [facility] [address] [place] [phone] Jun, Aly Moralez Encounter for superv ision of normal in multigravida in second trimester Z34.82 and 26 weeks gestation of Z3A.26 IMMUNIZATIONS No Information SOCIAL HISTORY Tobacco Use: [...] FOR REFERRAL No Information VITAL SIGNS Weight 208.8 lbs Jun, Weight-kg 94.71 kg Jun, Height 62 in Jun, BMI 38.19 kg/m2 Jun, Blood pressure systolic 100 mm Hg Jun, Blood pressure diastolic 70 mm Hg Jun, MEDICATIONS Medication SIG (Take, Route, Frequency, Duration) Start Date En d Date Status Zyrtec Allergy 10 MG 1 tablet Orally Once a day Active Sertraline HCl 50 MG 1 tablet Orally Once a day for 30 day(s) 2019 Not-Taking Omeprazole 10 MG 1 capsule 30 minutes before morning meal Orally On ce a day Active 27-1 MG 1 tablet Orally Once a day Active PROCEDURES No Information RESULTS Component Value Reference Range Type and Screen (D Rh Antibody Screen) Reviewed date:08/07/2020 21:53:39 Interpretation: Performing Lab:[facility] LABORATORY [address] [facility] [address] , ,[place] [address] BLOOD TYPE A POSITIVE AB SCREEN (INDIRECT CECILLE)VIS NEGATIVE CBC - Complete Blood Count Reviewed date:08/07/2020 21:53:36 Interpretation: Performing Lab:[facility] LABORATORY [address] [facility] [address] , ,[facility] WHITE BLOOD COUNT 8.4 4.0-10.0 RED BLOOD COUNT 4.10 4.00-5.40 HEMOGLOBIN 11.8 12.0-15.5 HEMATOCRIT 36.9 36.0-47.0 MEAN CORPUSCULAR VOLUME 90.0 80.0-96.0 MEAN CORPUSCULAR HEMOGLOBIN 28.8 27.0-33.0 MEAN CORPUSCULAR HGB CONC 32.0 32.0-36.5 RED CELL DISTRIBUTION WIDTH 14.0 11.5-14.5 PLATELET COUNT, AUTOMATED 224 150-450 Glucose Challenge Test 1 Hour Reviewed date:08/07/2020 21:53:41 Interpretation: Performing Lab:[facility] LABORATORY [address] [facility] [address] , ,[facility] GLUCOSE CHALLENGE TEST 1 HOUR 112 LESS THAN 140 REASON FOR VISIT 4WK PN MEDICAL (GENERAL) HISTORY Type Description Date Medical History none Surgical History wisdom teeth extract Hospitalization History childbirth Goals Section No Information Health Concerns No Information MEDICAL EQUIPMENT No Information MENTAL STATUS No Information FUNCTIONAL STATUS No Information ASSESSMENTS Encounter Date Diagnosis Notes Jun, 26 weeks gestation of (ICD-10 - Z3A.26) Jun, Encounter for supervision of normal in multigravida in second trimester (ICD-10 - Z34.82) PLAN OF TREATMENT Treatment Notes Test Name Order Date AB SCREEN (INDIRECT CECILLE)GEL Antibody Screen 2020-07 Insurance Providers Payer Name Payer Address Payer Phone Insured Name Patient Relati onship to Insured Coverage Start Date Coverage End Date [place] [phone] MALVIN GARCIA self
[2020-10-10] MEDS ORDERED: LACTATED RINGER'S 1000 ML IV STA (11:20)
[2020-10-10 11:57] LABS: HEMATOCRIT 40.1 % (36.0-47.0); HEMOGLOBIN 13.6 g/dl (12.0-15.5); MEAN CORPUSCULAR HEMOGLOBIN 29.8 pg (27.0-33.0); MEAN CORPUSCULAR HGB CONC 33.9 g/dl (32.0-36.5); MEAN CORPUSCULAR VOLUME 87.7 fl (80.0-96.0); PLATELET COUNT, AUTOMATED 188 10^3/uL (150-450); RED BLOOD COUNT 4.57 10^6/uL (4.00-5.40)
[2020-10-10] MEDS ORDERED: FENTANYL 2MCG/ML ROPIVACAINE 0.2% IN 0.9% NACL 100ML IVBAG As Ordered ONE (12:56)
[2020-10-10] MEDS ORDERED: ONDANSETRON 4MG/2ML VIAL IV PRN (13:00)
[2020-10-10] MEDS ORDERED: FENTANYL/ROPIVACAINE/NACL BAG 100 ML EPIDURAL SCH (13:00)
[2020-10-10] MEDS ORDERED: EPIDURAL/PCA KEYS XX PRN (13:00)
[2020-10-10] MEDS ORDERED: diphenhydrAMINE 50MG/ML VIAL (J1200) IV PRN (13:00)
[2020-10-10] MEDS ORDERED: EPIDURAL COMMENT XX SCH (13:00)
[2020-10-10] MEDS ORDERED: LACTATED RINGER'S 1000 ML IV PRN (13:00)
[2020-10-10] MEDS ORDERED: ePHEDrine SULFATE 25 MG/5 ML(5MG/ML) SYRINGE IV PRN (13:00)
[2020-10-10] MEDS ORDERED: REFRIGERATOR IV KEYS XX PRN (13:00)
[2020-10-10] MEDS ORDERED: NALOXONE INJ 0.4MG/1ML VIAL (J2310 PER 1MG) IV PRN (13:00)
[2020-10-10] MEDS ORDERED: LR 1,000 ML IV SCH (14:16)
[2020-10-10] MEDS ORDERED: OXYTOCIN DRIP 30 UNITS in IV 1 EA IV SCH ×2 (14:30→17:55)
--- NOTE | 2020-10-10 15:00 | HPE ---
HISTORY AND PHYSICAL DATE OF ADMISSION: 10/10/2020 ADMITTING DIAGNOSIS: Shahrzad is a 29-year-old 3, para 2-0-0-2, 39-2/7 weeks gestation, EDC 10/15/2020 based on second trimester ultrasound who presents to Labor and Delivery today with complaint of contractions all night which have progressively become more uncomfortable over the morning. Reports a mild blood show. Denies leakage of fluid and the fetus has been active. [facility]. course has been uncomplicated. OBSTETRIC HISTORY: September 2013, 37 weeks gestation, a 7 pound, 9 ounce female, vaginal exam, delivery in [place]. March 2019, a 39 weeks gestation, 7 pound, 11 ounce male, spontaneous vaginal discharge. Neither delivery had any complications. OBSTETRIC LABS: A+, antibody screen negative. Syphilis negative. HIV negative. Hepatitis C negative. Rubella immune. Gonorrhea and chlamydia negative. Gestational diabetic screening normal at 110. GBS is negative. PAST MEDICAL HISTORY: Noncontributory. PAST SURGICAL HISTORY: Graham tooth extraction. FAMILY HISTORY: Noncontributory. SOCIAL HISTORY: She is a nonsmoker. She is to an active duty soldier. She denies history of alcohol use or recreational drug use and she denies history of sexually transmitted diseases. She denies a history of abuse, physical, sexual and emotional. ALLERGIES: No known drug allergies. CURRENT MEDICATIONS: vitamin. OBJECTIVE: VITAL SIGNS: Temperature 97, pulse 106, respirations 18, blood pressure 130/81. heart rate is 140 with moderate variability, positive accelerations. Negative decelerations. Contractions every three to four minutes. They palpate mild. ABDOMEN: Gravid, cephalic presentation. Estimated weight 8 pounds. STERILE VAGINAL EXAM: 4 cm dilated, 80% effaced, -2 station, mid position. Positive bloody show. Membranes are intact. ASSESSMENT: Intrauterine at 39 and 2/7 weeks, heart rate category 1, active labor. PLAN: Admit the patient to Labor and Delivery. She is requesting an epidural for labor coping. An IV fluid bolus has been ordered as well as routine laboratories. She has been verbally consented for emergency surgery and blood products if they are necessary. I may consider Pitocin augmentation and assisted rupture of membranes if necessary following epidural. I do anticipate continued labor progress and a spontaneous vaginal delivery.
[2020-10-10] MEDS ORDERED: ACETAMINOPHEN TAB 650MG DOSE (2X325MG) PO PRN (18:00)
[2020-10-10] MEDS ORDERED: MEASLES,MUMPS,RUBELLA VACCINE INJ (MMR-II) (90707) SC SCH (18:00)
[2020-10-10] MEDS ORDERED: DOCUSATE SODIUM 100MG CAPSULE PO PRN (18:00)
[2020-10-10] MEDS ORDERED: IBUPROFEN 600MG TAB PO PRN (18:00)
[2020-10-10] MEDS ORDERED: BENZOCAINE 20% HEMORRHOIDAL OINTMENT 28GM TUBE TOP PRN (18:00)
[2020-10-10] MEDS ORDERED: RHOGAM 300 MCG (1500 IU) INJ (J2790) IM SCH (18:00)
[2020-10-10] MEDS ORDERED: METHYLERGONOVINE MALEATE 0.2 MG TAB PO PRN (18:00)
[2020-10-11] MEDS: IBUPROFEN 800 MG TAB PO PRN (05:37)
[2020-10-11 06:00] VITALS: BP 112/55
[2020-10-11] MEDS: PRENATAL VITAMINS CHEWABLE TABLET PO SCH (12:31)
[2020-10-11] MEDS: ACETAMINOPHEN 500 MG TAB PO PRN ×2 (12:31→20:21)
--- NOTE | 2020-10-11 14:42 | DN ---
DELIVERY NOTE DATE OF DELIVERY: 10/10/2020 DESCRIPTION OF DELIVERY: Shahrzad is a 29-year-old 3, para 3, 0, 0, 3 now, who was admitted to labor and delivery in active labor. She utilized an epidural for labor coping and Pitocin was added to augment her labor. She reached full dilation at 1710. She pushed to a normal spontaneous vaginal delivery of a live male infant in OA position with restitution to LOT position at 1723. There was a nuchal cord times one, loose, that was reduced manually at the time of delivery. Shoulders delivered with gentle downward traction and the corpus immediately followed. male had mouth and nares bulb suctioned. He was placed on the maternal abdomen, crying and active. The cord was clamped x2, and cut by the father of the baby under my direction once pulsations ceased. Spontaneous expulsion of intact placenta with three-vessel cord by Schultze mechanism was at 1738. Trailing membranes were teased out with ring forceps. Uterine hemostasis was achieved with I.V. Pitocin, rapid infusion and uterine fundal massage. Estimated blood loss was 300 mL. Perineum and vagina inspected, noted to be intact. male weighed 8 pounds 1 ounce (3660 grams), Apgars 8 and 9. Family have named their son Ulises. At the close of delivery, lab counts and instrument counts were correct and verified.
[2020-10-11 18:08] VITALS: BP 124/83
[2020-10-12 06:06] VITALS: BP 133/77
--- NOTE | 2020-10-12 07:04 | IPNPDOC ---
Progress Note Date of Service: Oct 12, 2020 Day#: 2 Progress Note PPD 1 SUBJECT: Shahrzad is a 29yo [id number] s/p uncomplicated on 10/10 at term when she presented in active labor, doing well day # 2. She has been ambulating, voiding spontaneously without issue and tolerating regular diet. Breast feeding without issue. Reports lochia is like a normal period. No fevers/chills/nausea/vomiting/CP/SOB. OBJECTIVE: VITAL SIGNS: Within normal limits, afebrile. Alert and oriented times three. Abdomen: Fundus firm at U-2. Soft, NTTP. Extremities: no pain with palpation of calves ASSESSMENT: Shahrzad is a 29yo [id number] s/p uncomplicated on 10/10 at term when she presented in active labor, doing well day # 2. Vitals within normal limits, afebrile, hemodynamically stable with no evidence of infection. PLAN: 1. Discharge to home today. 2. Tylenol and Motrin for pain. 3. Encourage breast feeding and ambulation. 4. Desires BTL 5. Routine PP visit in 6 weeks in clinic. 6. Discussed return precautions at length. Parisa Saunders MD VS, I&O, 24H, Fishbone Vital Signs/I&O Vital Signs Date Time Temp Pulse Resp B/P (MAP) Pulse Ox O2 Delivery O2 Flow Rate FiO2 10/12/20 06:06 98.3 79 14 133/77 (95) 98 Room Air Parisa Saunders MD Oct 12, 2020 07:04
[2020-10-12] MEDS ORDERED: DOK1CAP7 PO (07:07)
[2020-10-12] MEDS ORDERED: IBUP80TA PO (07:07)
--- NOTE | 2020-10-12 07:12 | DS.PDOC ---
Discharge Summary General Date of Admission Oct 10, 2020 at 11:10 Date of Discharge Oct 12, 2020 Discharge Summary PROCEDURES PERFORMED DURING STAY: spontaneous vaginal delivery ADMITTING DIAGNOSES: 1. active labor at term DISCHARGE DIAGNOSES: 1. active labor at term COMPLICATIONS/CHIEF COMPLAINT: LABOR. HISTORY OF PRESENT ILLNESS/HOSPITAL COURSE: Shahrzad is a 29yo [id number] s/p uncomplicated on 10/10 at term when she presented in active labor, doing well day # 2. She has had a benign course. At time of discharge, vitals were within normal limits, afebrile, hemodynamically stable with no evidence of infection. DISCHARGE MEDICATIONS: Please see below. ALLERGIES: Please see below. PHYSICAL EXAMINATION ON DISCHARGE: VITAL SIGNS: Within normal limits, afebrile. Alert and oriented times three. Abdomen: Fundus firm at U-2. Soft, NTTP. Extremities: no pain with palpation of calves LABORATORY DATA: Please see below. ACTIVITY: As tolerated, vaginal rest no heavy lifting 6 weeks DIET: regular DISPOSITION: home DISCHARGE PLAN/INSTRUCTIONS: 1. Discharge to home today. 2. Tylenol and Motrin for pain. 3. Encourage breast feeding and ambulation. 4. Desires BTL 5. Routine PP visit in 6 weeks in clinic. 6. Discussed return precautions at length. DISCHARGE CONDITION: Stable TIME SPENT ON DISCHARGE: Greater than 20 minutes. Vital Signs/I&Os Vital Signs Date Time Temp Pulse Resp B/P (MAP) Pulse Ox O2 Delivery O2 Flow Rate FiO2 10/12/20 06:06 98.3 79 14 133/77 (95) 98 Room Air Discharge Medications Scheduled Vit 10/Iron Fum/Folic (Vitafol-Ob Caplet) 1 Each Tablet, 1 TAB PO DAILY, (Reported) Scheduled PRN Docusate Sodium (Dok) 100 Mg Capsule, 100 MG PO BIDP PRN for CONSTIPATION Ibuprofen (Ibuprofen) 800 Mg Tablet, 800 MG PO Q8HP PRN for PAIN LEVEL 6-10 Allergies Coded Allergies: No Known Allergies (Unverified , 04/14/19) Parisa Saunders MD Oct 12, 2020 07:12
[2020-10-12] MEDS: IBUPROFEN 800 MG TAB PO PRN ×2 (07:57→22:10)
[2020-10-12] MEDS: PRENATAL VITAMINS CHEWABLE TABLET PO SCH (07:57)
[2020-10-12 18:00] VITALS: BP 119/60
[2020-10-12] MEDS: ACETAMINOPHEN 500 MG TAB PO PRN (19:38)
== END 2020-10-12 23:38 | disposition home or self-care (01) | DRG 807 ==
LOC: M LDO 10:46 → M LDI 11:10 → M OBS 20:08
PROVIDERS: ADMIT Advanced Practice Midwife; ATTEND Advanced Practice Midwife
PROC: 10E0XZZ Delivery of Products of Conception, External Approach (ICD-10-PCS; principal; 2020-10-10)
DX: O69.81X0 Labor and delivery complicated by cord around neck, without compression, not applicable or unspecified (principal); Z37.0 Single live birth; Z3A.39 39 weeks gestation of pregnancy

== ENCOUNTER → 2021-02-22 | Outpatient (CLI) | payer OTHER ==
[~2021-02-22] MED LIST changes: +BUSP5TA; +CETI-24; +DOK1CAP7 PO; +IBUP80TA PO
== END ==
LOC: M LABSMTC 09:39
PROVIDERS: ATTEND Anesthesiology
DX: Z20.828 Contact with and (suspected) exposure to other viral communicable diseases (principal); Z11.59 Encounter for screening for other viral diseases

== ENCOUNTER 2021-02-27 14:28 | Day surgery (SDC) | payer OTHER ==
[~2021-02-27] VITALS: Ht 157.5 cm; Wt 96.3 kg
[~2021-02-27 14:28] MED LIST changes: +LIDOCAINE 1% MDV 20ML VIAL SQ PRN; +LR 1,000 ML IV ONE
[2021-02-27 15:06] LABS: HEMATOCRIT 42.1 % (36.0-47.0); HEMOGLOBIN 13.8 g/dl (12.0-15.5); MEAN CORPUSCULAR HEMOGLOBIN 30.4 pg (27.0-33.0); MEAN CORPUSCULAR HGB CONC 32.8 g/dl (32.0-36.5); MEAN CORPUSCULAR VOLUME 92.7 fl (80.0-96.0); PLATELET COUNT, AUTOMATED 253 10^3/uL (150-450); RED BLOOD COUNT 4.54 10^6/uL (4.00-5.40); WHITE BLOOD COUNT 6.1 10^3/uL (4.0-10.0)
[2021-02-27] MEDS ORDERED: ROCURONIUM BROMIDE 50 MG/5 ML VIAL As Ordered ONE (15:38)
[2021-02-27] MEDS ORDERED: MIDAZOLAM INJ 2MG/2ML VIAL (J2250 PER 1MG) As Ordered ONE (15:38)
[2021-02-27] MEDS ORDERED: fentaNYL 100 MCG/2 ML INJECTION (J3010) As Ordered ONE ×2 (15:38→16:21)
[2021-02-27] MEDS ORDERED: LIDOCAINE 2% 100MG/5ML SDV (FOR ANES.) As Ordered ONE (15:38)
[2021-02-27] MEDS ORDERED: propofoL 200 MG/20 ML VIAL As Ordered ONE (15:38)
[2021-02-27] MEDS ORDERED: ONDANSETRON 4MG/2ML VIAL As Ordered ONE (15:38)
[2021-02-27] MEDS ORDERED: dexameTHASONE 4 MG/ML 1ML VIAL (J1100 PER 1MG) As Ordered ONE (15:38)
[2021-02-27] MEDS ORDERED: IBUP80TA PO (15:57)
[2021-02-27] MEDS ORDERED: PERC5TAB12 PO (15:59)
--- NOTE | 2021-02-27 16:01 | ROOPDOC ---
[facility] Report Of Operation Report of Operation DATE OF PROCEDURE: 02/27/21 JANE VILLAGRAN MD. Feb 27, 2021 16:01
[2021-02-27] MEDS ORDERED: KETOROLAC 60MG 2ML VIAL As Ordered ONE (16:08)
[2021-02-27] MEDS ORDERED: SUGAMMADEX SODIUM 500 MG/5 ML VIAL (BRIDION) As Ordered ONE (16:08)
[2021-02-27] MEDS ORDERED: ACETAMINOPHEN 1000MG 100ML IV BTL (OFIRMEV) (J0131 PER 10MG) As Ordered ONE (16:08)
[2021-02-27] MEDS ORDERED: KETOROLAC 30 MG/ML 1ML VIAL IV PRN (16:30)
[2021-02-27] MEDS: BUPIVACAINE HCL 0.25% 30ML VIAL As Ordered ONE ×2 (16:30→16:34)
[2021-02-27] MEDS ORDERED: fentaNYL 100 MCG/2 ML INJECTION (J3010) IV PRN (17:25)
[2021-02-27] MEDS ORDERED: LR 1,000 ML IV SCH (17:25)
[2021-02-27] MEDS ORDERED: ONDANSETRON 4MG/2ML VIAL IV PRN (17:25)
[2021-02-27] MEDS: oxyCODONE 5MG TAB PO PRN ×2 (17:30→18:02)
[2021-02-27] MEDS ORDERED: PERCOCET 5MG/325MG TAB PO PRN (17:35)
[2021-02-27 18:45] VITALS: BP 112/56
[2021-02-27] MEDS ORDERED: KETOROLAC 30 MG/ML 1ML VIAL IV SCH (22:30)
== END 2021-02-27 19:00 | disposition home or self-care (01) ==
LOC: M SDC 14:28
PROVIDERS: ATTEND Obstetrics & Gynecology
DX: Z30.2 Encounter for sterilization (principal); F41.9 Anxiety disorder, unspecified; F32.9 Major depressive disorder, single episode, unspecified; Z79.899 Other long term (current) drug therapy
CPT/HCPCS: 36415; 58661; 81025; 85027; 86850; 86900; 86901; 88302; J0131; J1100; J1885; J2250; J2405; J3010